=== PATIENT | male | born 1940 | race Caucasian/White ===

== ENCOUNTER → 2018-02-07 13:17 | Outpatient (CLI) | payer MEDICARE, MEDICAID, SELFPAY ==
[2018-02-07 14:09] LABS: Basophils # 0.1 K/mm3 (0-0.2); Eosinophils # 0.2 K/mm3 (0.0-0.4); Eosinophils % 3.3 % (0.1-12.0); Hematocrit 40.9 % (42.0-52.0); Hemoglobin 13.3 g/dL (14.1-18.0); Lymphocytes # 1.1 K/mm3 (0.7-4.5); Lymphocytes % 19.5 K/mm3 (10-50); Mean Corpuscular HGB Conc 32.6 g/dL (31.8-35.4); Mean Corpuscular Hemoglobin 30.7 pg (27.0-31.2); Mean Platelet Volume 7.4 fl (7.4-10.4); Monocytes # 0.3 K/mm3 (0.1-1.0); Monocytes % 6.3 % (1.7-9.3); Neutrophils # 3.7 K/mm3 (1.8-7.8); Neutrophils % 69.8 % (37.0-80.0); Platelet Count 347 K/mm3 (142-424); Red Blood Count 4.35 M/mm3 (4.60-6.20); Red Cell Distribution Width 12.9 % (11.5-17.5); White Blood Count 5.4 K/mm3 (4.8-10.8)
[2018-02-07 14:19] LABS: Anion Gap 12.6 mEq/L (5-15); Blood Urea Nitrogen 24 mg/dL (7-18); Carbon Dioxide 28 mmol/L (21.0-32.0); Chloride 103 mmol/L (98-107); Estimated Glomerular Filt Rate 73 ml/min (>60); Potassium 4.6 mmoL/L (3.5-5.1); Sodium 139 mmol/L (136-145)
[2018-02-07 14:20] LABS: Alanine Aminotransferase 13 U/L (12-78); Albumin/Globulin Ratio 1.1 (1.1-1.8); Alkaline Phosphatase 79 U/L (46-116); Aspartate Amino Transferase 18 U/L (15-37); Bilirubin,Total 0.2 mg/dL (0.2-1.0); Calcium 8.7 mg/dL (8.5-10.1); Chol/HDL Ratio 2.5 (1-3.5); Cholesterol 186 mg/dL (140-200); GFR (African American) 88 ML/MIN (>60); Globulin 3.8 gm/dl (1.3-3.2); Glucose 164 mg/dL (74-106); HDL Cholesterol 73 mg/dL (27-67); LDL Cholesterol 97 mg/dL (0-130); Phenytoin (Dilantin) 7.2 ug/mL (10-20); Thyroid Stimulating Hormone 2.25 uIU/ml (0.358-3.740); Total Protein,Serum 7.8 gm/dL (6.4-8.2); Triglycerides 79 mg/dL (30-200); VLDL Cholesterol 16 mg/dL (0-40)
[2018-02-07 15:02] LABS: Hemoglobin A1C 5.5 % (0.0-7.0)
== END ==
PROVIDERS: Visit Provider Internal Medicine Adolescent Medicine
DX: I25.10 Atherosclerotic heart disease of native coronary artery without angina pectoris (principal); E11.9 Type 2 diabetes mellitus without complications; E03.9 Hypothyroidism, unspecified; G40.909 Epilepsy, unspecified, not intractable, without status epilepticus
CPT/HCPCS: 36415; 80053; 80061; 80185; 83036; 84443; 85025

== ENCOUNTER → 2019-06-29 08:16 | Outpatient (CLI) | payer MEDICARE, SELFPAY ==
--- NOTE | 2019-06-29 08:23 | XR_ITS ---
PROCEDURE: XR HAND LT MIN 3V CLINICAL INDICATION: hand pain Pain palm left hand. Hand is constricted PICC limited ability to straighten hand at MCP joints COMPARISON: No previous left hand studies Only previous contralateral HAND-RT 3 VIEWS from 02/27/2013 FINDINGS: Moderately pronounced flexion at the MCP joints is at left hand. Flexion at left 2nd, 3rd, 4th and 5th MCP joints; but not the 1st MCP joint intact MCP joints themselves appear to be maintained and metacarpals intact.. No discrete erosive changes at these or other joints. Mild degenerative changes and slight narrowing perhaps at DIP joints. The lateral views show mild hypertrophic changes about the DIP joint of the index finger, and possibly 5th finger. Only borderline narrowing at the PIP joints the bones are well mineralized. Minor arthritic changes at the wrist IMPRESSION: Impression No fracture or acute findings Flexion at MCP joints Flexion at left 2nd, 3rd, 4th and 5th MCP joints Minimal degenerative changes at the DIP joints most notable at index finger Dictated by: Nacho Brice MD 06/29/2019 11:18 Signed by: <Electronically signed by Nacho Brice MD in [facility]> 06/29/2019 11:18
== END ==
PROVIDERS: PCP Internal Medicine Adolescent Medicine; Visit Provider Orthopaedic Surgery
DX: G89.29 Other chronic pain (principal); M79.642 Pain in left hand
CPT/HCPCS: 73130

== ENCOUNTER → 2019-08-02 15:20 | Outpatient (CLI) | payer MEDICARE, SELFPAY ==
[2019-08-02 15:59] LABS: Basophils # 0.1 K/mm3 (0-0.2); Basophils % 0.8 % (0.1-2.0); Eosinophils # 0.2 K/mm3 (0.0-0.4); Eosinophils % 2.9 % (0.1-12.0); Hematocrit 40.8 % (42.0-52.0); Hemoglobin 12.8 g/dL (14.1-18.0); Lymphocytes # 1.6 K/mm3 (0.7-4.5); Lymphocytes % 26.3 % (10-50); Mean Corpuscular HGB Conc 31.4 g/dL (31.8-35.4); Mean Corpuscular Hemoglobin 30.9 pg (27.0-31.2); Mean Corpuscular Volume 98.6 fl (80-94); Mean Platelet Volume 6.6 fl (7.4-10.4); Monocytes # 0.5 K/mm3 (0.1-1.0); Monocytes % 8.8 % (1.7-9.3); Neutrophils # 3.8 K/mm3 (1.8-7.8); Neutrophils % 61.3 % (37.0-80.0); Platelet Count 323 K/mm3 (142-424); Red Blood Count 4.14 M/mm3 (4.60-6.20); Red Cell Distribution Width 12.6 % (11.5-17.5); White Blood Count 6.2 K/mm3 (4.8-10.8)
[2019-08-02 16:39] LABS: Hemoglobin A1C 5.7 % (0.0-7.0)
[2019-08-02 16:41] LABS: Alanine Aminotransferase 24 U/L (12-78); Albumin Level 3.7 gm/dL (3.4-5.0); Albumin/Globulin Ratio 1.2 (1.1-1.8); Alkaline Phosphatase 56 U/L (46-116); Anion Gap 11.5 mEq/L (5-15); Aspartate Amino Transferase 19 U/L (15-37); Bilirubin,Total 0.2 mg/dL (0.2-1.0); Blood Urea Nitrogen 28 mg/dL (7-18); Calcium 8.4 mg/dL (8.5-10.1); Carbon Dioxide 30 mmol/L (21.0-32.0); Chloride 106 mmol/L (98-107); Estimated Glomerular Filt Rate 65 ml/min (>60); GFR (African American) 79 ML/MIN (>60); Globulin 3.1 gm/dl (1.3-3.2); Glucose 85 mg/dL (74-106); Phenytoin (Dilantin) 13.5 ug/mL (10-20); Sodium 141 mmol/L (136-145); Total Protein,Serum 6.8 gm/dL (6.4-8.2)
[2019-08-02 16:44] LABS: Potassium 6.5 mmoL/L (3.5-5.1)
[2019-08-07 14:25] LABS: Levetiracetam (Keppra) 65.7 ug/mL (10.0-40.0)
== END ==
PROVIDERS: Visit Provider Internal Medicine Adolescent Medicine
DX: E11.9 Type 2 diabetes mellitus without complications (principal); E03.9 Hypothyroidism, unspecified; G40.909 Epilepsy, unspecified, not intractable, without status epilepticus; I25.10 Atherosclerotic heart disease of native coronary artery without angina pectoris; Z79.84 Long term (current) use of oral hypoglycemic drugs
CPT/HCPCS: 36415; 80053; 80177; 80185; 83036; 84443; 85025

== ENCOUNTER → 2019-08-05 08:42 | Outpatient (CLI) | payer MEDICARE, SELFPAY ==
[2019-08-05 09:09] LABS: Anion Gap 10.6 mEq/L (5-15); Blood Urea Nitrogen 25 mg/dL (7-18); Calcium 8.7 mg/dL (8.5-10.1); Carbon Dioxide 30 mmol/L (21.0-32.0); Chloride 103 mmol/L (98-107); Creatinine,Serum 1.22 mg/dL (0.70-1.30); Estimated Glomerular Filt Rate 58 ml/min (>60); GFR (African American) 70 ML/MIN (>60); Glucose 98 mg/dL (74-106); Potassium 4.6 mmoL/L (3.5-5.1); Sodium 139 mmol/L (136-145)
== END ==
PROVIDERS: Visit Provider Internal Medicine Adolescent Medicine
DX: I10 Essential (primary) hypertension (principal)
CPT/HCPCS: 36415; 80048

== ENCOUNTER → 2019-08-21 08:47 | Outpatient (POV) | payer MEDICARE, MEDICAID, SELFPAY | PROVIDERS: Visit Provider Specialist | DX: M79.642 Pain in left hand (principal); G89.29 Other chronic pain | CPT/HCPCS: 95886; 95908 ==

== ENCOUNTER 2020-06-06 22:33 | Emergency (ER) | payer MEDICARE, MEDICAID, SELFPAY ==
--- NOTE | 2020-06-06 | ECG_ITS ---
APPROVED REPORT Exam: Resting ECG HR:66 bpm ECG Measurements Heart Rate 66 AXES MO 170 P -26 QRSd 92 QRS -22 QT 458 T 62 QTc 480 <Conclusion> Sinus rhythm with premature atrial complexes Incomplete right bundle branch block Prolonged QT Abnormal ECG Electronically signed by : Rui Montanez, 06/08/2020 08:06:59
[2020-06-06 22:33] VITALS: BP 118/66; PULSE 67; RESP 16; TEMP 37.3; O2SAT 94; BMI 27.6
--- NOTE | 2020-06-06 22:46 | XR_ITS ---
PROCEDURE: XR CHEST AP CLINICAL HISTORY: fall Right-sided pain following injury, blunt trauma COMPARISON: CXR CHEST(2 VIEWS-NOT PORTABLE) from 11/23/2014 CT CERVICAL SPINE WO CON from 06/06/2020 FINDINGS: Prior CABG. Normal heart size. No lobar consolidation or collapse. There is minimal blunting of the left CP angle There are old left 4th through 7th rib fractures IMPRESSION: No acute finding. See above Dictated by: Jules Pedro MD 06/07/2020 07:40 Electronically signed by Jules Pedro MD in [facility] 06/07/2020 07:40
--- NOTE | 2020-06-06 22:46 | XR_ITS ---
PROCEDURE: XR HIP RT 2-3V W/PELVIS CLINICAL INDICATION: fall Posttraumatic pain COMPARISON: No exams were available for comparison FINDINGS: No fracture or dislocation. No lytic or blastic change. There is normal mineralization. The joint spaces are well-preserved. No significant degenerative/arthritic changes. No erosive changes evident. Other findings:None. IMPRESSION: No acute findings. Dictated by: Jules Pedro MD 06/07/2020 07:41 Electronically signed by Jules Pedro MD in [facility] 06/07/2020 07:41
--- NOTE | 2020-06-06 22:46 | CT_ITS ---
PROCEDURE: CT HEAD/BRAIN WO CON CLINICAL INDICATION: fall Head injury with headache/pain, contusion, abrasion or hematoma COMPARISON: No exams were available for comparison TECHNIQUE: Axial images obtained. All CT scans at the facility use one or more dose reduction, viz: automated exposure control, ma/kV adjustment per patient size (including targeted exams where dose is matched to indication, i.e. head), or iterative reconstruction technique. FINDINGS: No midline shift, mass effect, intracranial hemorrhage, hydrocephalus, or extra-axial fluid collection is evident. There is generalized atrophy with hypoattenuation of the periventricular white matter consistent with microangiopathic changes. Encephalomalacia changes are present in the right temporal and parietal lobe and the left cerebellar hemisphere and left temporal lobe. The calvarium has an unremarkable appearance. No mastoid effusion. No sinus air-fluid level. The right optic lens is not. IMPRESSION: No acute intracranial finding. Please see above for detail Dictated by: Jules Pedro MD 06/07/2020 07:44 Electronically signed by Jules Pedro MD in [facility] 06/07/2020 07:44
--- NOTE | 2020-06-06 22:46 | CT_ITS ---
PROCEDURE: CT CERVICAL SPINE WO CON CLINICAL INDICATION: fall Neck injury with pain, contusion/abrasion or hematoma, cervical sprain/strain the COMPARISON: XR HIP RT 2-3V W/PELVIS from 06/06/2020 TECHNIQUE: Axial images obtained with sagittal and coronal reformats. All CT scans at the facility use one or more dose reduction, viz: automated exposure control, ma/kV adjustment per patient size (including targeted exams where dose is matched to indication, i.e. head), or iterative reconstruction technique. Axial spiral CT scanning performed of the cervical spine beginning at the base of the skull and continuing to the upper T-spine. 3-D multiplanar reconstruction with 3-D manipulation of volumetric data set in image rendering was completed by the radiologist and/or technologist with the supervision of the radiologist on independent workstation. FINDINGS: There is reversal of the upper cervical lordosis with multilevel cervical spondylosis with degenerative disc disease from C2 to C7 with minimal endplate osteophytes along with facet and uncovertebral hypertrophy. No acute fracture or dislocation. The lung apices are clear. IMPRESSION: 1. No acute fracture. 2. Multilevel cervical spondylosis. 3. There is reversal of the normal lordosis which may be due to patient positioning or muscle spasm. Dictated by: Jules Pedro MD 06/07/2020 07:47 Electronically signed by Jules Pedro MD in [facility] 06/07/2020 07:47
--- NOTE | 2020-06-06 22:53 | HMH.EDFALL ---
ED Disposition Clinical Impression: Frequent falls, Encephalomalacia, Elevated erythrocyte sedimentation rate, Elevated C-reactive protein (CRP), Renal insufficiency Disposition: Left Against Medical Advice Condition on Discharge: Fair Additional Instructions: see pcp vlad Referrals: Provider,Referral, [Primary Care Provider] - - Critical Care Critical Care Time: No Attestation: On 06/06/20, the high probability of a clinically significant, sudden or life threatening deterioration of the following system(s) required my full and direct attention, intervention and personal management. The time I documented below is in addition to time spent performing reported procedures but includes the following listed in this critical care notation. Medical Decision Making - Medical Records Medical records reviewed: Yes: I reviewed the patient's medical records. - Don Inquiry Pt receiving controlled substance: No Vital Signs: 06/06/20 22:33 06/07/20 00:05 Temperature 99.1 F Temperature Source Oral Pulse Rate [Right] 67 50 L Respiratory Rate 16 18 Blood Pressure [Right Arm] 118/66 147/95 H Blood Pressure Mean [Right Arm] 83 112 Blood Pressure Source [Right Arm] Automatic Cuff Blood Pressure Position [Right Arm] Supine 02 Sat by Pulse Oximetry 94 L 95 Oxygen Delivery Method Room Air Room Air - Lab Data Lab results reviewed: Yes: I reviewed the patient's lab results. Lab Results 06/06/20 23:15: WBC 12.4 H, RBC 3.74 L, Hgb 11.7 L, Hct 35.3 L, MCV 94.4 H, MCH 31.3 H, MCHC 33.2, RDW 13.0, Plt Count 244, MPV 7.7, Neut % (Auto) 83.5 H, Lymph % (Auto) 9.2 L, [place] % (Auto) 5.4, Eos % (Auto) 1.6, Baso % (Auto) 0.2, Neut # (Auto) 10.4 H, Lymph # (Auto) 1.2, [place] # (Auto) 0.7, Eos # (Auto) 0.2, Baso # (Auto) 0.0, ESR 105 H 06/06/20 23:15: Sodium 137, Potassium 4.7, Chloride 99, Carbon Dioxide 31 H, Anion Gap 11.7, BUN 37 H, Creatinine 1.20, Estimated Creat Clear 52, Estimated GFR 59, Est GFR ( Amer) 71, Glucose 78, Calcium 8.8, Total Bilirubin 0.5, AST 56, ALT 25, Alkaline Phosphatase 54, Total Creatine Kinase 949 H*, C-Reactive Protein 158.6 H, Total Protein 6.7, Albumin 3.8, Globulin 2.9, Albumin/Globulin Ratio 1.3, Phenytoin 16.4 06/06/20 23:15: Troponin I 0.02 Result diagrams: 06/06/20 23:15 06/06/20 23:15 Orders (Tests/Meds): ED MEDICATIONS Generic Name Dose Route Start Last Admin Trade Name Freq PRN Reason Stop Dose Admin Sodium Chloride 1,000 mls @ 999 mls/hr 06/06/20 23:00 06/07/20 00:05 Sod Chlor 0.9% 1000ml Bag IV 06/07/20 00:00 999 mls/hr .Q1H1M SAUNDRA Administration Discontinued Medications Generic Name Dose Route Start Last Admin Trade Name Freq PRN Reason Stop Dose Admin Ketorolac Tromethamine 30 mg 06/06/20 22:46 06/07/20 00:06 Toradol 30mg/Ml Vial IV 06/06/20 22:47 30 mg ONCE ONE Administration ORDERS Category Date Time Status CT cervical spine wo con Stat Cat Scan 06/06/20 22:[address] head/brain wo con Stat Cat Scan 06/06/20 22:46 Taken Humerus XR right [XR humerus RT] Stat Exams 06/06/20 22:56 Taken XR chest AP Stat Exams 06/06/20 22:46 Taken XR hip RT 2-3V w/pelvis Stat Exams 06/06/20 22:46 Taken Troponin I Q3H Lab 06/07/20 02:30 Ordered Troponin I Q3H Lab 06/07/20 05:30 Ordered UA [Urinalysis and Microscopic] Stat Lab 06/07/20 00:48 Ordered - Radiology Data #1 Image(s): Chest, Humerus, Pelvis, Hip Image Reviewed: Yes I reviewed the patient's radiology image Preliminary Findings: No Fracture Seen - CT Data CT Scan: Head, C-Spine Time Received: 01:[address] Reviewed: Yes: I have viewed the radiologist's interpretation Preliminary Findings: Abnormal (see report ) - ECG Data Tracing #1 Normal Sinus Rhythm: Yes Ischemic changes: non-specific ST-T wave changes Conduction abnormalities present: QT prolongation Fall HPI - General Chief Complaint: Fall Stated Complaint: multiple fall Time Seen by Provider: 06/06/
--- NOTE | 2020-06-06 22:56 | XR_ITS ---
PROCEDURE: XR HUMERUS RT CLINICAL INDICATION: fall Pain following injury COMPARISON: No exams were available for comparison FINDINGS: No fracture or dislocation. No lytic or blastic change. There is normal mineralization. The joint spaces are well-preserved. No significant degenerative/arthritic changes. No erosive changes evident. Other findings:None. IMPRESSION: No acute findings. Dictated by: Jules Pedro MD 06/07/2020 07:38 Electronically signed by Jules Pedro MD in [place] 06/07/2020 07:38
--- NOTE | 2020-06-06 22:57 | PC.NURSE ---
Pt needs to have a BM refuses bed hoyos, agrees to bedside commode, pt assisted to bed side and call light in reach
[2020-06-06 23:25] LABS: Basophils % 0.2 % (0.1-2.0); Eosinophils # 0.2 K/mm3 (0.0-0.4); Eosinophils % 1.6 % (0.1-12.0); Hematocrit 35.3 % (42.0-52.0); Hemoglobin 11.7 g/dL (14.1-18.0); Lymphocytes # 1.2 K/mm3 (0.7-4.5); Lymphocytes % 9.2 % (10-50); Mean Corpuscular HGB Conc 33.2 g/dL (31.8-35.4); Mean Corpuscular Hemoglobin 31.3 pg (27.0-31.2); Mean Corpuscular Volume 94.4 fl (80-94); Mean Platelet Volume 7.7 fl (7.4-10.4); Monocytes # 0.7 K/mm3 (0.1-1.0); Monocytes % 5.4 % (1.7-9.3); Neutrophils # 10.4 K/mm3 (1.8-7.8); Neutrophils % 83.5 % (37.0-80.0); Platelet Count 244 K/mm3 (142-424); Red Blood Count 3.74 M/mm3 (4.60-6.20); White Blood Count 12.4 K/mm3 (4.8-10.8)
[2020-06-06 23:30] LABS: Chloride 99 mmol/L (98-107)
[2020-06-06 23:31] LABS: Potassium 4.7 mmoL/L (3.5-5.1); Sodium 137 mmol/L (136-145)
--- NOTE | 2020-06-06 23:32 | PC.NURSE ---
Pt c/o multiple falls at home, states his legs just give out, only c/o is posterior right hip pain. Pt has larege bruise to right tricept area. Pt daphnie any head injury or LOC. Pt able to raise and hold all 4 ext up without difficulty. PERRL 2mm. A&O x 4
[2020-06-06 23:33] LABS: Alanine Aminotransferase 25 U/L (12-78); Albumin Level 3.8 g/dl (3.5-5.0); Albumin/Globulin Ratio 1.3 (1.1-1.8); Alkaline Phosphatase 54 U/L (38-126); Anion Gap 11.7 mEq/L (5-15); Aspartate Amino Transferase 56 U/L (17-59); Bilirubin,Total 0.5 mg/dl (0.2-1.3); Blood Urea Nitrogen 37 mg/dl (9-20); Calcium 8.8 mg/dl (8.4-10.2); Carbon Dioxide 31 mmol/L (22.0-30.0); Creatine Kinase 949 U/L (55-170); Creatinine Clearance Estimated 52 mL/min (50-200); Estimated Glomerular Filt Rate 59 ml/min (>60); GFR (African American) 71 ML/MIN (>60); Globulin 2.9 g/dL (1.3-3.2); Glucose 78 mg/dl (74-100); Total Protein,Serum 6.7 g/dl (6.3-8.2)
[2020-06-06 23:39] LABS: C-Reactive Protein 158.6 mg/L (0-4)
[2020-06-06 23:48] LABS: Troponin I 0.02 ng/ml (0.00-0.034)
[2020-06-06 23:55] LABS: Phenytoin (Dilantin) 16.4 ug/ml (10-20)
[2020-06-07 00:05] VITALS: BP 147/95; PULSE 50; RESP 18; O2SAT 95
[2020-06-07 00:19] LABS: Erythrocyte Sedimentation Rate 105 mm/hr (0-20)
--- NOTE | 2020-06-07 00:46 | PC.NURSE ---
Pt has become aggressive to staff at this time stating he wants to go home. Pt demanded his IV be taken out as he aysha a fist to staff. Multiple attempts to call caregiver to come pick him up with no answer.
--- NOTE | 2020-06-07 00:57 | PC.NURSE ---
pt is continuing to be aggressive and wont stay in bed pt keep repeating im leaving this damn place MD at bedside to assess pt. pt refused to be assessed by MD pt swore at MD and kept repeating dont put your damn hands on me.
--- NOTE | 2020-06-07 00:59 | PC.NURSE ---
Pt refused vitals or to be touched by any [facility] staff
--- NOTE | 2020-06-07 01:15 | PC.NURSE ---
pt standing naked at the nurses station yelling and cussing and stating he will walk home.
[2020-06-07 01:29] LABS: Microscopic, Urine URINE MICROSCOPIC (MICROSCOPIC)
--- NOTE | 2020-06-07 01:34 | PC.NURSE ---
awaiting ride for patient
[2020-06-07 01:37] LABS: Appearance,Urine CLEAR (Clear); Blood, Urine Negative (Negative); Color,Urine YELLOW (Yellow); Glucose,Urine (UA) Negative (Negative); Ketones,Urine TRACE (Negative); Leukocyte Esterase,Urine TRACE (Negative); Nitrate,Urine Negative (Negative); PH,Urine 8.5 (5.0-8.5); Protein,Urine TRACE (Negative); Urobilinogen,Urine 0.2 EU/dl (0.2)
[2020-06-07 01:39] LABS: Bilirubin,Urine Negative (Negative)
--- NOTE | 2020-06-07 01:41 | PC.NURSE ---
Pt very aggressive swinging at staff, refusing to get back in bed yelling and using foul language walking in the halls naked refusing to go back to room.
--- NOTE | 2020-06-07 01:42 | PC.NURSE ---
Pt leaving AMA refuses to sign paper, we were able to get a hold of Rose to give pt a ride home.
[2020-06-07 01:43] LABS: Bacteria,Urine Trace /lpf; Squamous Epithelial Cell,Urine Occasional #/hpf (0-5); Triple Phosphate Crystal,Urine Trace /lpf
--- NOTE | 2020-06-07 01:51 | PC.NURSE ---
pt sister katie picked up pt.
[2020-06-07 02:08] VITALS: BP 000/00; PULSE 0; RESP 0; TEMP -17.7; TEMP 0; O2SAT 0
[2020-06-07 15:24] LABS: POC Glucose,Bedside 89 (70-110)
== END 2020-06-07 02:11 | disposition left against medical advice (07) ==
PROVIDERS: Emergency Provider Emergency Medicine
DX: G93.89 Other specified disorders of brain (principal); N28.9 Disorder of kidney and ureter, unspecified; M25.551 Pain in right hip; R29.6 Repeated falls; E11.9 Type 2 diabetes mellitus without complications; R79.82 Elevated C-reactive protein (CRP); R70.0 Elevated erythrocyte sedimentation rate; Z79.899 Other long term (current) drug therapy
CPT/HCPCS: 70450; 71045; 72125; 73060; 73502; 80053; 80185; 81001; 82550; 82962; 84484; 85025; 85651; 86140; 93005; 96365; 96375; 99284

== ENCOUNTER → 2020-10-29 11:29 | Outpatient (CLI) | payer MEDICARE, MEDICAID, SELFPAY ==
--- NOTE | 2020-10-29 | CA_ITS ---
APPROVED REPORT Right Lower Extremity Venous Study for DVT. Panel Machine Tender: MARISOL Indications Lower Extremity Pain: Left Vein Imaging CFV (R): compressive, spontaneous, phasic, augmentation SFJ (R): compressive, spontaneous, phasic, augmentation FEM (R): compressive, spontaneous, phasic, augmentation POP (R): compressive, spontaneous, phasic, augmentation DFV (R): compressive, spontaneous, phasic, augmentation PTV (R): compressive, spontaneous, phasic, augmentation GSV (R): compressive, spontaneous, phasic, augmentation SSV (R): compressive, spontaneous, phasic, augmentation Peroneals (R):compressive, spontaneous, phasic, augmentation GAS (R): compressive, spontaneous, phasic, augmentation Findings RLE negative for DVT/SVT. Vessels fully compressible. Conclusion RLE negative for DVT/SVT. Vessels fully compressible. Electronically signed by : Jules Pedro MD 10/29/2020 16:06:50
== END ==
PROVIDERS: PCP Internal Medicine Adolescent Medicine; Visit Provider Podiatrist
DX: M79.604 Pain in right leg (principal)
CPT/HCPCS: 93971

== ENCOUNTER 2021-05-16 09:57 | Emergency (ER) | payer MEDICARE, MEDICAID, SELFPAY ==
[2021-05-16 10:04] VITALS: BP 180/93; PULSE 68; RESP 18; TEMP 36.8; O2SAT 100; BMI 23.8
[2021-05-16 10:47] LABS: Apearance,Urine Cloudy (Clear); Blood, Urine 3+ (Negative); Color,Urine Amber (Yellow); Glucose,Urine (UA) Negative (Negative); Ketones,Urine TRACE (Negative); Protein,Urine 1+ (Negative); Specific Gravity, Urine 1.025 (1.005-1.030)
[2021-05-16 10:48] LABS: Bilirubin,Urine 1+ (Negative); UTC Leukocyte Esterase,Urine 2+ (Negative); UTC Nitrate,Urine Negative (Negative); Urobilinogen,Urine 0.2 EU/dl (0.2)
--- NOTE | 2021-05-16 10:54 | HMH.EDUTC ---
[facility] [place]position Clinical Impression: UTI (urinary tract infection) Qualifiers: Urinary tract infection type: site unspecified Hematuria presence: with hematuria Qualified Code(s): N39.0 - Urinary tract infection, site not specified Disposition: Home, Self-Care Condition on Discharge: Good Instructions: DI for Urinary Tract Infection (UTI) Additional Instructions: Drink plenty of fluids. Take tylenolfor pain or fever. Take the medications as directed. Follow up with your regular doctor. GO TO THE ER FOR ANY WORSENING SYMPTOMS Prescriptions: Cefdinir [Omnicef 300mg Capsule] 300 mg PO BID #20 cap Transmission Status: Received by [facility] Referrals: Provider,Referral, [Primary Care Provider] - Time of Disposition: 11:01 Medical Decision Making - Medical Records Medical records reviewed: No: I reviewed the patient's medical records. - Don Inquiry Pt receiving controlled substance: No Vital Signs: 05/16/21 10:04 05/16/21 10:59 Temperature 98.2 F 98.3 F Temperature Source Oral Pulse Rate 77 Pulse Rate [Left Radial] 68 Respiratory Rate 18 18 Blood Pressure 162/81 H Blood Pressure [Right Arm] 180/93 H Blood Pressure Mean [Right Arm] 122 Blood Pressure Source [Right Arm] Automatic Cuff Blood Pressure Position [Right Arm] Sitting 02 Sat by Pulse Oximetry 100 Oxygen Delivery Method Room Air - Lab Data Lab results reviewed: Yes: I reviewed the patient's lab results. Lab Results 05/16/21 10:41: Urine Color Rachelle, Urine Appearance Cloudy, Urine pH 7.0, Ur Specific [place] 1.025, Urine Protein 1+, Urine Glucose (UA) Negative, Urine Ketones Trace, Urine Blood 3+, Urine Nitrate Negative, Urine Bilirubin 1+ A, Urine Urobilinogen 0.2, Ur Leukocyte Esterase 2+ A Orders (Tests/Meds): ORDERS Category Date Time Status Urine Culture Stat Micro 05/16/21 11:01 Received [facility] [place] HPI - General Stated complaint: painful when urinates Time Seen by Provider: 05/16/21 10:54 Mode of Arrival: Ambulatory Source of Information: Patient Limitations: No Limitations Description of Symptoms (Recalled from Triage Doc. by RN): Pt reports pain in penis after urinating x3 days. Pt denies fevers. Pt reports he does feel like he is able to empty his bladder fully. - History of Present Illness Provider Complaint: He states that he has been having burning with urination for the past 2 days. He also has pain and burning of his penis after he urinates. - Related Data Home Medications Medication Instructions Recorded Confirmed Buspirone HCl [Buspar 10mg 10 mg PO DAILY 06/06/19 05/14/21 tablet] Clopidogrel Bisulfate [Plavix 75mg 75 mg PO DAILY 06/06/19 05/14/21 Tab] Donepezil HCl [Aricept 5mg 5 mg PO DAILY 06/06/19 05/14/21 Tablet] Meloxicam 15 mg PO DAILY 06/06/19 05/14/21 Metoprolol Tartrate [Lopressor 25 mg PO DAILY 06/06/19 05/14/21 25mg tablet] clonazePAM [Clonazepam] 1 mg PO DAILY 06/06/19 05/14/21 levETIRAcetam [Levetiracetam] 500 mg PO DAILY 06/06/19 05/14/21 aspirin 81 mg tablet,delayed 81 mg PO DAILY 06/30/19 05/14/21 release atorvastatin 20 mg tablet 20 mg PO DAILY 06/30/19 05/14/21 cholecalciferol (vitamin D3) 25 1,000 unit PO DAILY 06/30/19 05/14/21 mcg (1,000 unit) capsule linaclotide 72 mcg capsule 72 mcg PO DAILY 06/30/19 05/14/21 magnesium oxide 400 mg PO DAILY 06/30/19 05/14/21 mirtazapine 30 mg tablet 30 mg PO DAILY 06/30/19 05/14/21 phenytoin 100 mg/4 mL oral 100 mg PO TID 06/30/19 05/14/21 suspension ranolazine 1,000 mg 1,000 mg PO BID 06/30/19 05/14/21 tablet,extended release,12 hr levothyroxine 75 mcg tablet 75 mcg PO tab 05/14/21 05/14/21 metformin 500 mg tablet 500 mg PO tab 05/14/21 05/14/21 pregabalin 50 mg capsule 50 mg PO cap 05/14/21 05/14/21 Previous Rx's Medication Instructions Recorded methylprednisolone 4 mg tablets in See Rx Instructions PO PER PKG DIR 06/30/21 a dose pack #21 tab Cefdinir [Om
[2021-05-16 10:59] VITALS: BP 162/81; PULSE 77; RESP 18; TEMP 36.8
== END 2021-05-16 11:10 | disposition home or self-care (01) ==
PROVIDERS: Emergency Provider Nurse Practitioner Family
DX: N30.01 Acute cystitis with hematuria (principal); I25.10 Atherosclerotic heart disease of native coronary artery without angina pectoris; E11.9 Type 2 diabetes mellitus without complications; E78.5 Hyperlipidemia, unspecified; F41.8 Other specified anxiety disorders; Z79.899 Other long term (current) drug therapy
CPT/HCPCS: 81003; 87086

== ENCOUNTER → 2021-12-03 11:03 | Outpatient (CLI) | payer MEDICARE, MEDICAID, SELFPAY ==
[2021-12-03 12:21] LABS: Basophils % 0.6 % (0.1-2.0); Eosinophils # 0.1 K/mm3 (0.0-0.4); Hematocrit 36.8 % (42.0-52.0); Hemoglobin 11.5 g/dL (14.1-18.0); Lymphocytes # 1.2 K/mm3 (0.7-4.5); Lymphocytes % 20.7 % (10-50); Mean Corpuscular HGB Conc 31.1 g/dL (31.8-35.4); Mean Corpuscular Hemoglobin 28.1 pg (27.0-31.2); Mean Corpuscular Volume 90.1 fl (80-94); Monocytes # 0.5 K/mm3 (0.1-1.0); Monocytes % 8.3 % (1.7-9.3); Neutrophils # 3.9 K/mm3 (1.8-7.8); Neutrophils % 69.3 % (37.0-80.0); Platelet Count 315 K/mm3 (142-424); Red Blood Count 4.08 M/mm3 (4.60-6.20); Red Cell Distribution Width 14.4 % (11.5-17.5); White Blood Count 5.6 K/mm3 (4.8-10.8)
[2021-12-03 13:48] LABS: Chloride 103 mmol/L (98-107)
[2021-12-03 13:49] LABS: Potassium 5.3 mmoL/L (3.5-5.1); Sodium 136 mmol/L (136-145)
[2021-12-03 13:51] LABS: Alanine Aminotransferase 17 U/L (12-78); Anion Gap 8.3 mEq/L (5-15); Aspartate Amino Transferase 25 U/L (17-59); Blood Urea Nitrogen 24 mg/dl (9-20); Carbon Dioxide 30 mmol/L (22.0-30.0); Estimated Glomerular Filt Rate 64 ml/min (>60); GFR (African American) 78 ML/MIN (>60)
[2021-12-03 13:52] LABS: Albumin Level 4.1 g/dl (3.5-5.0); Albumin/Globulin Ratio 1.5 (1.1-1.8); Alkaline Phosphatase 43 U/L (38-126); Bilirubin,Total 0.1 mg/dl (0.2-1.3); Calcium 8.3 mg/dl (8.4-10.2); Cholesterol 150 mg/dl (140-200); Globulin 2.7 g/dL (1.3-3.2); Glucose 141 mg/dl (74-100); HDL Cholesterol 78 mg/dl (40-60); Total Protein,Serum 6.8 g/dl (6.3-8.2); Triglycerides 119 mg/dl (30-150); VLDL Cholesterol 24 mg/dL (0-40)
[2021-12-03 13:53] LABS: Chol/HDL Ratio 1.9 (1-3.5)
[2021-12-03 14:03] LABS: Direct LDL Cholesterol 60.35 mg/dL (100-129)
[2021-12-03 14:22] LABS: Thyroid Stimulating Hormone 2.73 uIU/mL (0.465-4.68)
[2021-12-03 14:56] LABS: Hemoglobin A1C 5.4 % (4.0-6.0)
== END ==
PROVIDERS: PCP Internal Medicine Adolescent Medicine; Visit Provider Internal Medicine Adolescent Medicine
DX: I25.10 Atherosclerotic heart disease of native coronary artery without angina pectoris (principal); E03.9 Hypothyroidism, unspecified; E11.9 Type 2 diabetes mellitus without complications; Z79.84 Long term (current) use of oral hypoglycemic drugs
CPT/HCPCS: 36415; 80053; 80061; 83036; 84443; 85025

== ENCOUNTER → 2022-08-18 08:27 | Outpatient (POV) | payer MEDICARE, MEDICAID, SELFPAY | PROVIDERS: Visit Provider Dermatology | DX: Z00.00 Encounter for general adult medical examination without abnormal findings (principal) ==

== ENCOUNTER 2023-02-05 10:32 | Observation (INO) | payer MEDICARE, MEDICAID, SELFPAY ==
[2023-02-05] VITALS (11 sets, daily range): BP systolic 94–172; BP diastolic 58–100; PULSE 74–89; RESP 18–20; TEMP 36.8–36.9; O2SAT 90–99; BMI 29.8; BMI 23.4
--- NOTE | 2023-02-05 10:35 | ECG_ITS ---
APPROVED REPORT Exam: Resting ECG HR:73 bpm ECG Measurements Heart Rate 73 AXES OH 143 P 17 QRSd 94 QRS -39 QT 443 T 67 QTc 469 Conclusion SINUS RHYTHM LEFT AXIS DEVIATION [QRS AXIS < -30] NONSPECIFIC T-WAVE ABNORMALITY PROLONGED QT INTERVAL ABNORMAL ECG UNCONFIRMED REPORT Electronically signed by : Rui Montanez MD 02/06/2023 20:30:10
--- NOTE | 2023-02-05 10:39 | PC.NURSE ---
ADOLFO TINOCO at
--- NOTE | 2023-02-05 10:41 | HMH.EDGENADL ---
Discharge Plan Disposition Chief Complaint: Altered Mental Status Prescriptions Prescriptions: No Action Linzess 72 mcg capsule 72 mcg PO DAILY aspirin [Aspir-81] 81 mg tablet,delayed release (DR/EC) 81 mg PO DAILY cholecalciferol (vitamin D3) 1,000 unit capsule 1,000 unit PO DAILY phenytoin 100 mg/4 mL suspension 100 mg PO TID atorvastatin 20 mg tablet 20 mg PO DAILY magnesium oxide 400 mg magnesium capsule 400 mg PO DAILY Ranexa 1,000 mg tablet extended release 12 hr 1,000 mg PO BID mirtazapine 30 mg tablet 30 mg PO DAILY metformin 500 mg tablet 500 mg PO pregabalin 50 mg capsule 50 mg PO levothyroxine 75 mcg tablet 75 mcg PO methylprednisolone 4 mg tablets,dose pack See Rx Instructions PO PER PKG DIR Qty: 21 0RF Rx Instructions: PO PER PKG DIR meclizine 25 mg tablet 25 mg PO donepezil 5 MG tablet 5 mg PO DAILY levetiracetam 500 MG tablet 500 mg PO DAILY meloxicam 15 MG tablet 15 mg PO DAILY clonazepam 1 MG tablet 1 mg PO DAILY clopidogrel 75 MG tablet 75 mg PO DAILY buspirone 10 MG tablet 10 mg PO DAILY metoprolol tartrate 25 MG tablet 25 mg PO DAILY Referrals Follow up/Referrals: Provider,Referral, MD [Primary Care Provider] - See instructions Instructions Patient Instructions: DI for Altered Mental Status Discharge ED Provider: Rafia Metzger General Adult HPI General Chief complaint: Altered Mental Status Stated complaint: AMS Time Seen by Provider: 02/05/23 10:41 History of Present Illness HPI narrative: Patient is an 82-year-old male presenting with altered mental status. History was obtained from the patient, EMS, and his caregiver, his caregiver who is a primary historian with the most concise and accurate information. She states that he has been altered for the last 3 days that he is normally coherent at baseline but has been speaking out of his mind and that he has been trying to find his sister who is as well as doing things like drinking tobacco juice. She states he is also been screaming and yelling and hallucinating at night. He seems to be better during the day. Preceding this he has had no fevers chills or other symptoms according to her and she sees him on a daily basis. No changes in medications that she is aware of. The patient himself states that he has no current pain and he believes he is here because he had worsening falls lately. Caregiver does confirm that he fell recently while getting out of his car scraped up his right hand but had no other significant injuries and did not hit his head that she is aware of. She states only time she seen him like this in the past was around the time that his years ago. Remainder of history from the patient is significantly limited as he is a poor historian but also is disoriented to time. Related Data Home Medications Medication Instructions Recorded Confirmed buspirone 10 mg tablet 10 mg PO DAILY Depression 06/06/19 12/24/22 clonazepam 1 mg tablet 1 mg PO DAILY Anxiety 06/06/19 12/24/22 clopidogrel 75 mg tablet 75 mg PO DAILY Blood thinner 06/06/19 12/24/22 donepezil 5 mg tablet 5 mg PO DAILY Supplement 06/06/19 12/24/22 levetiracetam 500 mg tablet 500 mg PO DAILY Supplement 06/06/19 12/24/22 meloxicam 15 mg tablet 15 mg PO DAILY Pain 06/06/19 12/24/22 metoprolol tartrate 25 mg tablet 25 mg PO DAILY Hypertension 06/06/19 12/24/22 aspirin 81 mg tablet,delayed 81 mg PO DAILY 06/30/19 12/24/22 release (Aspir-) atorvastatin 20 mg tablet 20 mg PO DAILY 06/30/19 12/24/22 cholecalciferol (vitamin D3) 25 1,000 unit PO DAILY 06/30/19 12/24/22 mcg (1,000 unit) capsule linaclotide 72 mcg capsule 72 mcg PO DAILY 06/30/19 12/24/22 (Linzess) magnesium oxide 400 mg PO DAILY 06/30/19 12/24/22 mirtazapine 30 mg tablet 30 mg PO DAILY 06/30/19 12/24/22 phenytoin 100 mg/4 mL oral 100 mg PO
--- NOTE | 2023-02-05 10:42 | XR_ITS ---
FINAL REPORT CLINICAL HISTORY: AMS COMPARISON: 06/06/2020 FINDINGS: SINGLE-VIEW CHEST The heart size is normal. The patient is status post median sternotomy. There are mild chronic changes in both lungs. The previously identified interstitial opacity in both lungs has improved, likely related to superimposed pulmonary edema. There is no pneumothorax. IMPRESSION: Improved interstitial opacity as compared to prior. Reviewed, Interpreted and Dictated by Kamron Sommers MD Transcribed by Kathy Dominguez Authenticated and [facility]
--- NOTE | 2023-02-05 10:43 | CT_ITS ---
FINAL REPORT TECHNIQUE: Axial images were performed through the brain.This study was performed with techniques to keep radiation doses as low as reasonably achievable, (ALARA). Individualized dose reduction techniques using automated exposure control or adjustment of mA and/or kV according to the patient''s size were employed. CLINICAL HISTORY: AMS COMPARISON: 06/06/2020 FINDINGS: Motion artifact limits exam sensitivity. There is encephalomalacia in the anterior middle right temporal lobe extending to the right posterior parietal lobe. There is also encephalomalacia in the anterior left temporal lobe. There is mild to moderate global atrophy. The ventricles are normal in size for the degree of atrophy. There is no extra-axial fluid or midline shift. There is no evidence of acute hemorrhage or mass. Visualized paranasal sinuses are clear. IMPRESSION: Atrophy and chronic findings. No acute intracranial process. Reviewed, Interpreted and Dictated by Kamron Sommers MD Transcribed by Bhavana Liao Authenticated and [facility]
[2023-02-05 10:54] LABS: POC Glucose,Bedside 146 (70-110)
[2023-02-05 10:57] LABS: Basophils # 1.2 K/mm3 (0-0.2); Basophils % 6.9 % (0.1-2.0); Eosinophils # 0.3 K/mm3 (0.0-0.4); Eosinophils % 1.9 % (0.1-12.0); Hematocrit 31.8 % (42.0-52.0); Hemoglobin 10.1 g/dL (14.1-18.0); Lymphocytes # 8.1 K/mm3 (0.7-4.5); Lymphocytes % 47.1 % (10-50); Mean Corpuscular HGB Conc 31.9 g/dL (31.8-35.4); Mean Corpuscular Hemoglobin 27.6 pg (27.0-31.2); Mean Corpuscular Volume 86.7 fl (80-94); Mean Platelet Volume 7.5 fl (7.4-10.4); Monocytes # 1.2 K/mm3 (0.1-1.0); Monocytes % 7.2 % (1.7-9.3); Neutrophils # 7.5 K/mm3 (1.8-7.8); Neutrophils % 43.9 % (37.0-80.0); Platelet Count 394 K/mm3 (142-424); Red Blood Count 3.67 M/mm3 (4.60-6.20); Red Cell Distribution Width 16.2 % (11.5-17.5); White Blood Count 17.1 K/mm3 (4.8-10.8)
[2023-02-05 11:00] LABS: Alanine Aminotransferase 20 U/L (12-78); Albumin Level 3.4 g/dl (3.5-5.0); Albumin/Globulin Ratio 0.7 (1.1-1.8); Alkaline Phosphatase 66 U/L (38-126); Anion Gap 11.1 mEq/L (5-15); Aspartate Amino Transferase 33 U/L (17-59); Bilirubin,Total 0.3 mg/dl (0.2-1.3); Blood Urea Nitrogen 30 mg/dl (9-20); Calcium 7.9 mg/dl (8.4-10.2); Carbon Dioxide 30 mmol/L (22.0-30.0); Chloride 99 mmol/L (98-107); Creatinine Clearance Estimated 40 mL/min (50-200); Estimated Glomerular Filt Rate 39 ml/min (>60); GFR (African American) 47 ML/MIN (>60); Globulin 4.7 g/dL (1.3-3.2); Glucose 148 mg/dl (74-100); Potassium 4.1 mmoL/L (3.5-5.1); Sodium 136 mmol/L (136-145); Total Protein,Serum 8.1 g/dl (6.3-8.2)
[2023-02-05 11:03] LABS: Activated Partial Thrombo Time 24.7 seconds (22.8-30.6); INR 1.14 (0.9-1.1); Prothrombin Time 12.2 seconds (10.1-12.5)
[2023-02-05 11:04] LABS: MANUAL DIFFERENTIAL MANUAL DIFFERENTIAL (MANUAL DIFF)
[2023-02-05 11:04] LABS: Microscopic, Urine URINE MICROSCOPIC (MICROSCOPIC)
[2023-02-05 11:08] LABS: Appearance,Urine CLOUDY (Clear); Blood, Urine 2+ (Negative); Color,Urine YELLOW (Yellow); Glucose,Urine (UA) Negative (Negative); Ketones,Urine 1+ (Negative); Leukocyte Esterase,Urine TRACE (Negative); Nitrate,Urine Negative (Negative); Protein,Urine 2+ (Negative); Specific Gravity, Urine >= 1.030 (1.005-1.030); Urobilinogen,Urine 0.2 EU/dl (0.2)
[2023-02-05 11:10] LABS: Bilirubin,Urine 1+ (Negative)
[2023-02-05 11:10] LABS: VBG Base Excess 1.7 mmol/L (-2.4-2.3); VBG HCO3 26.8 mmol/L (23-30); VBG Oxygen Saturation 60.2 % (50-70); VBG PCO2 46.2 mmol/L (35-51); VBG PH 7.38 mmol/L (7.31-7.41); VBG PO2 33.9 mmol/L (28-40); VBG Total CO2 28.3 mmol/L (23-27)
[2023-02-05 11:17] LABS: Lymphocytes % 65 % (10-50); Monocytes % 2 % (2-9); Neutrophils % 33 % (42-76); Total Cells Counted 100
[2023-02-05 11:18] LABS: Hypochromasia 1+; Microcytosis 1+; Platelet Estimate Normal
[2023-02-05 11:22] LABS: Bacteria,Urine 2+ /lpf; Squamous Epithelial Cell,Urine Occasional #/hpf (0-5)
--- NOTE | 2023-02-05 11:22 | PC.NURSE ---
pt given meal tray
--- NOTE | 2023-02-05 11:25 | PC.NURSE ---
pt to radiology
[2023-02-05 11:31] LABS: Thyroid Stimulating Hormone 2.37 uIU/mL (0.465-4.68)
--- NOTE | 2023-02-05 11:41 | PC.NURSE ---
pt sitting up in bed eating diabetic lunch tray at this time. call light within reach
[2023-02-05 12:47] LABS: Ammonia 36 umol/L (9-30)
--- NOTE | 2023-02-05 12:47 | PC.NURSE ---
pt ambulated to restroom and a small mb no problems ambulating to and from restroom
--- NOTE | 2023-02-05 13:28 | PC.NURSE ---
pt has tried getting out of bed three time help adjust pt in bed moved curtain were we can keep a watch on pt. his sister is @ [facility]
--- NOTE | 2023-02-05 14:51 | PC.NURSE ---
Friend updated on plan of care; pending admission.
--- NOTE | 2023-02-05 14:56 | PC.NURSE ---
Case Management notified of admission. Dr. Pete Garrett Dx Encephalopathy & UTI
[2023-02-05 15:17] LABS: Opiate Screen,Urine Negative ng/ml (<300)
--- NOTE | 2023-02-05 15:17 | PC.NURSE ---
Dr. lucas, hospitialist at
[2023-02-05 15:18] LABS: Phencyclidine Screen,Urine Negative ng/ml (<25)
--- NOTE | 2023-02-05 15:18 | PC.NURSE ---
Dr Doroteo Garrett @ [facility]
[2023-02-05 15:22] LABS: Amphetamine/Metha Screen,Urine Negative ng/ml (<1000); Barbiturates Screen,Urine Negative ng/ml (<200)
[2023-02-05 15:23] LABS: Benzodiazepines Screen,Urine Negative ng/ml (<200)
[2023-02-05 15:25] LABS: Cannabinoid Screen,Urine Negative ng/ml (<50)
--- NOTE | 2023-02-05 15:25 | EXP.HP ---
History of Present Illness *Admission Date: 02/05/23 *Reason for visit:: Confusion *History of present illness: Patient is an 82-year-old male presenting with altered mental status.? History was obtained from the patient, EMS, and his caregiver, his caregiver who is a primary historian with the most concise and accurate information.? She states that he has been altered for the last 3 days that he is normally coherent at baseline but has been speaking out of his mind and that he has been trying to find his sister who is as well as doing things like drinking tobacco juice.? She states he is also been screaming and yelling and hallucinating at night.? He seems to be better during the day.? Preceding this he has had no fevers chills or other symptoms according to her and she sees him on a daily basis.? No changes in medications that she is aware of.? The patient himself states that he has no current pain and he believes he is here because he had worsening falls lately.? Caregiver does confirm that he fell recently while getting out of his car scraped up his right hand but had no other significant injuries and did not hit his head that she is aware of.? She states only time she seen him like this in the past was around the time that his years ago.? Remainder of history from the patient is significantly limited as he is a poor historian but also is disoriented to time. [facility] Disclaimer: The information contained in this section may have been updated after the patient was seen, as this information can be updated by other users. Social History (Reviewed 12/24/22 @ 10:50 by Millicent Quinones [facility]) Smoking Status: Unknown if ever smoked alcohol intake: former substance use type: denies use current occupational status: retired Travel in the last 8 weeks: None Review of Systems Review of Systems Review of systems:: unable to obtain Meds Home Medications and Allergies Home Medications Medication Instructions Recorded Confirmed Type buspirone 10 mg tablet 10 mg PO DAILY Depression 06/06/19 12/24/22 History clonazepam 1 mg tablet 1 mg PO DAILY Anxiety 06/06/19 12/24/22 History clopidogrel 75 mg tablet 75 mg PO DAILY Blood thinner 06/06/19 12/24/22 History donepezil 5 mg tablet 5 mg PO DAILY Supplement 06/06/19 12/24/22 History levetiracetam 500 mg tablet 500 mg PO DAILY Supplement 06/06/19 12/24/22 History meloxicam 15 mg tablet 15 mg PO DAILY Pain 06/06/19 12/24/22 History metoprolol tartrate 25 mg tablet 25 mg PO DAILY Hypertension 06/06/19 12/24/22 History aspirin 81 mg tablet,delayed 81 mg PO DAILY 06/30/19 12/24/22 History release (Aspir-) atorvastatin 20 mg tablet 20 mg PO DAILY 06/30/19 12/24/22 History cholecalciferol (vitamin D3) 25 1,000 unit PO DAILY 06/30/19 12/24/22 History mcg (1,000 unit) capsule linaclotide 72 mcg capsule 72 mcg PO DAILY 06/30/19 12/24/22 History (Linzess) magnesium oxide 400 mg PO DAILY 06/30/19 12/24/22 History mirtazapine 30 mg tablet 30 mg PO DAILY 06/30/19 12/24/22 History phenytoin 100 mg/4 mL oral 100 mg PO TID 06/30/19 12/24/22 History suspension ranolazine 1,000 mg 1,000 mg PO BID 06/30/19 12/24/22 History tablet,extended release,12 hr (Ranexa) levothyroxine 75 mcg tablet 75 mcg PO 05/14/21 12/24/22 History metformin 500 mg tablet 500 mg PO 05/14/21 12/24/22 History methylprednisolone 4 mg tablets in See Rx Instructions PO PER PKG DIR 05/14/21 12/24/22 Rx a dose pack #21 tabs pregabalin 50 mg capsule 50 mg PO 05/14/21 12/24/22 History meclizine 25 mg tablet 25 mg PO 03/09/22 12/24/22 History New Prescriptions to Start Prescriptions: Allergies Allergy/AdvReac Type Severity Reaction Status Date / Time No Known Allergies Allergy Verified 12/24/22 10:50 Exam Data for Last 24 hours Vital signs and Labs for Last 24 Hours: Temp Pulse Resp BP Pulse Ox 98.2 F 74 20 132/100 H 95 02/05/23 10:32 02/05/23 15:00 02/05/23 14:01 01/14
[2023-02-05 15:26] LABS: Cocaine Screen,Urine Negative ng/ml (<300)
[2023-02-05 15:27] LABS: Methadone Screen,Urine Negative ng/ml (<300)
--- NOTE | 2023-02-05 15:33 | US_ITS ---
PROCEDURE INFORMATION: Exam: US Abdomen, Limited; Right Upper Quadrant Exam date and time: 02/05/2023 4:23 PM Age: 82 years old Clinical indication: Abdominal pain; Prior surgery; Surgery date: 6+ months; Surgery type: Gb removed; Additional info: Liver. +- cirrhosis? ? TECHNIQUE: Imaging protocol: Real time ultrasound of the abdomen with image documentation. Limited exam focused on the right upper quadrant. COMPARISON: No relevant prior studies available. FINDINGS: Liver: Normal echotexture with a septated cystic nodule measuring 1.4 x 1.2 cm. No significant intrahepatic biliary ductal dilation. Gallbladder: Unremarkable cholecystectomy site. Biliary ducts: Common duct: 4 mm. Pancreas: Visualized pancreas normal. Right kidney: Measures 8.6 cm and demonstrates normal echotexture, normal renal cortical thickness without nephrolithiasis or hydronephrosis. Other findings: No evidence of ascites. IMPRESSION: A small septated cystic hepatic nodule, otherwise unremarkable study.
--- NOTE | 2023-02-05 15:39 | PC.NURSE ---
nurse with other pt, will call back for report
[2023-02-05 15:50] LABS: Coronavirus 19, PCR Not Detected (NotDetected); Influenza A, PCR Not Detected (NotDetected); Influenza B, PCR Not Detected (NotDetected)
--- NOTE | 2023-02-05 15:57 | PC.NURSE ---
report called to Colleen CLARKE
--- NOTE | 2023-02-05 16:03 | PC.NURSE ---
kyle area cleaned and pt placed in new gown
--- NOTE | 2023-02-05 16:20 | PC.NURSE ---
lab states that covid swab is going on now, they just finished with another swab
--- NOTE | 2023-02-05 16:22 | PC.NURSE ---
radiology at bs for US
[2023-02-05 16:24] LABS: Thyroid Stimulating Hormone 2.29 uIU/mL (0.465-4.68)
--- NOTE | 2023-02-05 16:58 | PC.NURSE ---
pt arrived to floor by wheelchair at [phone]
--- NOTE | 2023-02-05 18:19 | PC.WOUNDNOTE ---
BRUISING TO R ELBOW BRUISING TO R HAND SKIN TEAR TO L ARM L ARM SCRAPES TO L FINGERS BRUISE ON R THIGH BRUISE ON L KNEE
--- NOTE | 2023-02-05 18:21 | PC.NURSE ---
PT IS ALERT TO NAME AND BIRTHDAY. UNABLE TO ANSWER OTHER QUESTIONS AND IS CONFUSED. PT HAS SCATTERED BRUISING AND SKIN TEARS. PT IS ABLE TO URINATE IN URINAL WITH ASSISTANCE. URINE DARK TEA COLORED. SOME BLEEDING NOTED TO TIP OF PENIS. PT HAS HAD NO NEEDS OR C/O NOTED SINCE ARRIVAL TO FLOOR. TOLERATING RA WELL. BED SAFETY ON. BRIEF IN PLACE. PT RESTING AT THIS TIME, VSS. PT DOES HAVE HOME MEDS, WILL LOCK IN MED DRAWER.
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
--- NOTE | 2023-02-05 21:12 | PC.NURSE ---
MORE COOPERATIVE. ORIENTED TO PERSON. RESTING QUIETLY AT THIS TIME. HOB ELEVATED 30 DEGREES. SIDE RAILS UP X 3. UPPER RAILS PADDED FOR H/O SEIZURES. CALL WOOD IN REACH.
--- NOTE | 2023-02-05 22:22 | PC.NURSE ---
PATIENT AWAKE. TRYING TO GET OOB. UNSTEADY. CONFUSED. HITTING. KICKING. CONFUSED. TONO Burr DNP NOTIFIED.
--- NOTE | 2023-02-05 22:40 | PC.NURSE ---
patient has received 15 mg olanzipin. warehouse assembly worker notified that patient needs a sitter as he is confused and unsteady and will fall. sitter arrived at 2240.
--- NOTE | 2023-02-05 22:53 | PC.NURSE ---
awake. resting in bed. quiet. sitter at bedside.
--- NOTE | 2023-02-05 23:54 | PC.NURSE ---
patient pulled iv out dispite having a sitter.
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
--- NOTE | 2023-02-06 02:55 | PC.NURSE ---
AT 2030 BLADDER SCAN READINGS (POST VOID) 22ML AND 23 ML.
[2023-02-06 04:00] VITALS: BP 156/91; PULSE 62; RESP 18; TEMP 36.9; O2SAT 88; BMI 23.1
--- NOTE | 2023-02-06 04:10 | PC.NURSE ---
TOTAL IVFs 841. IV SITE SALINE LOCKED PATIENT CONSTANTLY FIGHTING THE IVFs.
--- NOTE | 2023-02-06 04:16 | PC.NURSE ---
NAPS AT SHORT INTERVALS. IV SITE LOCKED AT THIS TIME.
[2023-02-06 07:28] LABS: Basophils # 0.6 K/mm3 (0-0.2); Basophils % 4.3 % (0.1-2.0); Eosinophils # 0.5 K/mm3 (0.0-0.4); Eosinophils % 3.6 % (0.1-12.0); Hematocrit 30.8 % (42.0-52.0); Hemoglobin 9.7 g/dL (14.1-18.0); Lymphocytes # 6.5 K/mm3 (0.7-4.5); Mean Corpuscular HGB Conc 31.4 g/dL (31.8-35.4); Mean Corpuscular Volume 85.9 fl (80-94); Mean Platelet Volume 7.6 fl (7.4-10.4); Neutrophils # 5.8 K/mm3 (1.8-7.8); Neutrophils % 42.3 % (37.0-80.0); Platelet Count 379 K/mm3 (142-424); Red Blood Count 3.58 M/mm3 (4.60-6.20); Red Cell Distribution Width 16.2 % (11.5-17.5); White Blood Count 13.7 K/mm3 (4.8-10.8)
[2023-02-06 07:33] VITALS: BP 158/58; PULSE 92; RESP 18; TEMP 36.4; O2SAT 95
[2023-02-06 07:39] LABS: Alanine Aminotransferase 14 U/L (12-78); Albumin Level 3.2 g/dl (3.5-5.0); Albumin/Globulin Ratio 0.7 (1.1-1.8); Alkaline Phosphatase 64 U/L (38-126); Anion Gap 10.8 mEq/L (5-15); Aspartate Amino Transferase 34 U/L (17-59); Bilirubin,Total 0.3 mg/dl (0.2-1.3); Blood Urea Nitrogen 24 mg/dl (9-20); Calcium 7.4 mg/dl (8.4-10.2); Carbon Dioxide 30 mmol/L (22.0-30.0); Chloride 101 mmol/L (98-107); Creatinine Clearance Estimated 37 mL/min (50-200); Estimated Glomerular Filt Rate 45 ml/min (>60); GFR (African American) 54 ML/MIN (>60); Globulin 4.6 g/dL (1.3-3.2); Glucose 67 mg/dl (74-100); Magnesium 2.5 mg/dl (1.6-2.3); Phosphorous 4.1 mg/dl (2.5-4.5); Potassium 3.8 mmoL/L (3.5-5.1); Sodium 138 mmol/L (136-145); Total Protein,Serum 7.8 g/dl (6.3-8.2)
[2023-02-06 11:23] VITALS: O2SAT 93
--- NOTE | 2023-02-06 13:42 | EXP.ACUTE.PN ---
Subjective *Date: 02/06/23 *Time: 13:42 Interval history: Remains confused and agitated. Unable to provide history Medical Exam Vital signs and Labs for Last 24 Hours: Vital Signs Temp Pulse Pulse Resp BP BP Pulse Ox 02/06/23 11:23 93 L 02/06/23 07:33 97.5 F L 92 H 18 158/58 H 95 02/06/23 04:00 98.4 F 62 18 156/91 H 88 L 02/05/23 20:00 98.4 F 83 18 172/58 H 90 L 02/05/23 20:00 93 L 02/05/23 16:55 98.2 F 74 19 158/60 H 02/05/23 16:00 98.4 F 89 18 165/66 H 93 L 02/05/23 15:00 74 132/100 H 95 02/05/23 14:31 77 158/60 H 94 L 02/05/23 14:01 84 20 142/72 H 94 L Intake and Output 02/05/23 02/06/23 02/06/23 23:59 07:59 15:59 Intake Total 641 / 641 Output Total 32 / 32 220 / 695 475 / 695 Balance -32 / 168 421 / -54 -475 / -54 Intake: Intake, Oral Amount 200 / 200 Intake, Total IV Amount 441 / 441 0.9 % Sodium Chloride 1000ML 1, 441 / 441 000 ml @ 125 mls/hr IV .Q8H [facility] Rx#:[id number] Output: Output, Urine Amount 32 / 32 220 / 695 475 / 695 Other: Number of Unmeasured Voids 1 0 Weight 67.812 kg 66.933 kg Patient Weight 02/06/23 23:59 Weight 66.933 kg Laboratory Results - last 24 hr 02/05/23 10:29: Retic Count (auto) 2.0 02/05/23 10:29: TSH 2.29 02/05/23 10:56: Urine Opiates Screen Negative, Urine Methadone Screen Negative, Ur Barbituates Screen Negative, Ur Phencyclidine Scrn Negative, Ur Amphetamines Screen Negative, U Benzodiazepines Scrn Negative, Urine Cocaine Screen Negative, U Marijuana (THC) Screen Negative 02/05/23 15:34: SARS-CoV-2 (PCR) Not detected, Influenza A Untype (PCR) Not detected, Influenza Type B (PCR) Not detected 02/06/23 06:36: WBC 13.7 H, RBC 3.58 L, Hgb 9.7 L, Hct 30.8 L, MCV 85.9, MCH 27.0, MCHC 31.4 L, RDW 16.2, Plt Count 379, MPV 7.6, Neut % (Auto) 42.3, Lymph % (Auto) 47.0, [place] % (Auto) 7.0, Eos % (Auto) 3.6, Baso % (Auto) 4.3 H, Neut # (Auto) 5.8, Lymph # (Auto) 6.5 H, [place] # (Auto) 1.0, Eos # (Auto) 0.5 H, Baso # (Auto) 0.6 H 02/06/23 06:36: Sodium 138, Potassium 3.8, Chloride 101, Carbon Dioxide 30, Anion Gap 10.8, BUN 24 H, Creatinine 1.50 H, Estimated Creat Clear 37, Estimated GFR 45 L, Est GFR ( Amer) 54 L, Glucose 67 L D, Calcium 7.4 L, Phosphorus 4.1, Magnesium 2.5 H, Total Bilirubin 0.3, AST 34, ALT 14 D, Alkaline Phosphatase 64, Total Protein 7.8, Albumin 3.2 L, Globulin 4.6 H, Albumin/Globulin Ratio 0.7 L I & O for Labs for Last 24 Hours: Intake & Output 02/03/23 02/04/23 02/05/23 02/06/23 23:59 23:59 23:59 23:59 Intake Total 641 / 641 Output Total 695 / 695 Balance -32 / 168 -54 / -54 Weight 67.812 kg 66.933 kg Microbiology Reports for the Last 24 Hours: Microbiology 02/05/23 10:56 Urine,Catheterized Urine Culture - Preliminary NO GROWTH AFTER 24 HOURS Constitutional: Present mild distress, disheveled and combative Comment:: Confused disoriented alert to self only Respiratory: Present normal respiratory effort Cardiac: Present Reg Rate and Rhythm GI: Present normal bowel sounds; Absent tenderness Extremities: Present normal inspection and full ROM Skin: Present intact; Absent erythema Neuro: Present Grossly Intact and moves all extremities Assessment and Plan *Assessment and plan (1) Encephalopathy acute: Status: Acute Category: Medical Code(s): G93.40 - Encephalopathy, unspecified (2) Acute UTI: Status: Acute Category: Medical Code(s): N39.0 - Urinary tract infection, site not specified (3) Type 2 diabetes mellitus with hyperglycemia, without long-term current use of insulin: Status: Acute Category: Medical Code(s): E11.65 - Type 2 diabetes mellitus with hyperglycemia Plan 82-year-old man with progressive encephalopathy of 3 days duration. Patient smells of urine and had blood at his meatus. Mild leukocytosis, with UT
[2023-02-06 15:09] VITALS: BP 162/84; PULSE 76; RESP 18; TEMP 36.9; O2SAT 98
--- NOTE | 2023-02-06 17:50 | PC.NURSE ---
PT HAS BEEN MOSTLY COOPERATIVE THIS SHIFT. TOLERATING ROOM AIR WELL. DID REMOVE PUREWICK. INCONTINENT OF BOWEL AND BLADDER WITH BRIEF IN PLACE. DOES FOLLOW SOME COMMANDS BUT UNABLE TO HOLD MEANINGFUL CONVERSATION. NEW IV PLACE TO RAC. 500 ML BOLUS RECEIVED THIS SHIFT.
[2023-02-06 20:00] VITALS: BP 134/74; TEMP 37.1; O2SAT 90
[2023-02-07] VITALS (7 sets, daily range): BP systolic 160–185; BP diastolic 66–95; PULSE 66–91; RESP 17–18; TEMP 36.8–37.4; O2SAT 91–99; BMI 23.3
--- NOTE | 2023-02-07 09:26 | PC.NURSE ---
pt refusing to take medications at this time, will try again later.
--- NOTE | 2023-02-07 13:49 | EXP.ACUTE.PN ---
Subjective *Date: 02/07/23 *Time: 13:49 Interval history: Slightly more oriented, unable to provide history due to delirium Medical Exam Vital signs and Labs for Last 24 Hours: Vital Signs Temp Pulse Resp BP Pulse Ox 02/07/23 11:08 98.9 F 81 17 175/66 H 92 L 02/07/23 07:41 99.3 F 66 18 160/95 H 92 L 02/07/23 04:00 98.2 F 91 H 18 185/94 H 92 L 02/07/23 00:00 98.7 F 84 18 160/87 H 93 L 02/06/23 20:00 90 L 02/06/23 20:00 98.8 F 134/74 90 L 02/06/23 15:09 98.4 F 76 18 162/84 H 98 Intake and Output 02/06/23 02/07/23 02/07/23 23:59 07:59 15:59 Intake Total 2331 / 2332 Output Total 125 / 945 0 / 0 0 / 0 Balance -125 / -304 2331 / 2331 0 / 233 Intake: Intake, Oral Amount 0 / 0 Intake, Total IV Amount 2331 0.9 % Sodium Chloride 1000ML 1, 2331 000 ml @ 125 mls/hr IV .Q8H [facility] Rx#:[id number] Output: Output, Urine Amount 125 / 945 0 / 0 0 / 0 Other: Number of Unmeasured Voids 0 1 1 Weight 67.302 kg Patient Weight 02/07/23 23:59 Weight 67.302 kg Laboratory Results - last 24 hr 02/05/23 10:56: Urine Color Yellow, Urine Appearance Cloudy, Urine pH 6.0, Ur Specific [place] >= 1.030, Urine Protein 2+, Urine Glucose (UA) Negative, Urine Ketones 1+, Urine Blood 2+, Urine Nitrate Negative, Urine Bilirubin 1+ A, Urine Urobilinogen 0.2, Ur Leukocyte Esterase Trace, Urine RBC 5-10, Urine WBC 3-5, Ur Squamous Epith Cells Occasional, Urine Bacteria 2+ I & O for Labs for Last 24 Hours: Intake & Output 02/04/23 02/05/23 02/06/23 02/07/23 23:59 23:59 23:59 23:59 Intake Total 641 / 641 2331 / 2332 Output Total 32 / 32 945 / 945 0 / 0 Balance -32 / 168 -304 / -304 2332 / 2332 Weight 67.812 kg 66.933 kg 67.302 kg Microbiology Reports for the Last 24 Hours: Microbiology 02/05/23 10:56 Urine,Catheterized Urine Culture - Preliminary Gram Positive Cocci Constitutional: Present mild distress, disheveled and combative Comment:: Confused disoriented alert to self only Respiratory: Present normal respiratory effort Cardiac: Present Reg Rate and Rhythm GI: Present normal bowel sounds; Absent tenderness Extremities: Present normal inspection and full ROM Skin: Present intact; Absent erythema Neuro: Present Grossly Intact and moves all extremities Assessment and Plan *Assessment and plan (1) Encephalopathy acute: Status: Acute Category: Medical Code(s): G93.40 - Encephalopathy, unspecified (2) Acute UTI: Status: Acute Category: Medical Code(s): N39.0 - Urinary tract infection, site not specified (3) Type 2 diabetes mellitus with hyperglycemia, without long-term current use of insulin: Status: Acute Category: Medical Code(s): E11.65 - Type 2 diabetes mellitus with hyperglycemia Plan 82-year-old man with progressive encephalopathy of 3 days duration. Patient smells of urine and had blood at his meatus. Mild leukocytosis, with UTI on urine analysis. Culture sent. Empiric Rocephin in ER. Encephalopathy likely secondary to your urinary tract infection exacerbating underlying chronic encephalomalacia. Delirium slightly improving, continue current therapy Delirious encephalopathy improving -Likely secondary to urinary tract infection, treated with Rocephin -We will monitor, bedrest for now -Physical therapy and care management evaluation for placement following resolution of symptoms -Delirium precautions -Can consider low-dose Zyprexa as needed if agitated Urinary tract infection Urine culture grew gram positive cocci -Follow-up urine culture -Condom catheter for incontinence Acute kidney injury -Likely prerenal -Fluid resuscitation -Bladder scan - Improving Anemia -Could be acute from urinary blood loss -Stool occult -Reticulocyte count - monitor US abdoen liver ordered due to multiple sequela of potential liver
--- NOTE | 2023-02-07 16:12 | DIET.NUTRFU ---
Patient continues NPO since admit on 02/05. Receiving IVF for hydration. Renal labs improving at 08/12.5. Patient continues to have delirium with some improvement according to providers note. Wt stable since last admit in Dec 65.7kg. Start oral diet when medically feasible
--- NOTE | 2023-02-07 17:43 | PC.NURSE ---
pt has been confused and uncooperative this shift. unable to engage in meaningful conversation. tolerating room air with room air sat >90%. he has pulled out multiple iv's. frequently tries to climb out of bed. this rn attempted to place new iv but pt will not follow commands and tries to swing at staff. will attempt again
--- NOTE | 2023-02-08 00:12 | PC.NURSE ---
COURTESY ROUND PATIENT AWAKE. ASSISTED PATIENT WITH URINAL . BED ALARM ON AND CALL LIGHT WITHIN REACH . TRASH EMPTIED AND LINENS . WATER PITCHER REFILLED
[2023-02-08 04:00] VITALS: BP 162/82; PULSE 90; RESP 18; TEMP 37.7; O2SAT 91; BMI 22.6
[2023-02-08 08:00] VITALS: BP 150/80; PULSE 89; RESP 18; TEMP 38.2
[2023-02-08 08:31] LABS: Alanine Aminotransferase 18 U/L (12-78); Albumin Level 3.4 g/dl (3.5-5.0); Albumin/Globulin Ratio 0.6 (1.1-1.8); Alkaline Phosphatase 72 U/L (38-126); Aspartate Amino Transferase 39 U/L (17-59); Bilirubin,Total 0.4 mg/dl (0.2-1.3); Blood Urea Nitrogen 18 mg/dl (9-20); Calcium 7.5 mg/dl (8.4-10.2); Carbon Dioxide 27 mmol/L (22.0-30.0); Chloride 98 mmol/L (98-107); Creatinine Clearance Estimated 45 mL/min (50-200); Estimated Glomerular Filt Rate 58 ml/min (>60); GFR (African American) 70 ML/MIN (>60); Globulin 5.4 g/dL (1.3-3.2); Glucose 69 mg/dl (74-100); Magnesium 2.2 mg/dl (1.6-2.3); Sodium 136 mmol/L (136-145); Total Protein,Serum 8.8 g/dl (6.3-8.2)
[2023-02-08 08:35] LABS: Basophils # 0.6 K/mm3 (0-0.2); Basophils % 3.6 % (0.1-2.0); Eosinophils # 0.2 K/mm3 (0.0-0.4); Hemoglobin 10.4 g/dL (14.1-18.0); Lymphocytes # 8.9 K/mm3 (0.7-4.5); Lymphocytes % 50.7 % (10-50); Mean Corpuscular HGB Conc 32.4 g/dL (31.8-35.4); Mean Corpuscular Hemoglobin 27.6 pg (27.0-31.2); Mean Platelet Volume 7.6 fl (7.4-10.4); Monocytes # 1.1 K/mm3 (0.1-1.0); Monocytes % 6.5 % (1.7-9.3); Neutrophils # 7.3 K/mm3 (1.8-7.8); Neutrophils % 41.8 % (37.0-80.0); Platelet Count 402 K/mm3 (142-424); Red Blood Count 3.76 M/mm3 (4.60-6.20); Red Cell Distribution Width 16.4 % (11.5-17.5); White Blood Count 17.5 K/mm3 (4.8-10.8)
[2023-02-08 08:37] LABS: MANUAL DIFFERENTIAL MANUAL DIFFERENTIAL (MANUAL DIFF)
[2023-02-08 08:53] LABS: Lymphocytes % 29 % (10-50); Monocytes % 6 % (2-9); Neutrophils % 65 % (42-76); Total Cells Counted 100
[2023-02-08 08:54] LABS: Platelet Estimate Normal; RBC Morphology Normal
--- NOTE | 2023-02-08 09:02 | EXP.PHA.CONS ---
Pharmacy Consult Date: 02/08/23 Time: 09:02 Referring provider: DR. RETANA Reason for Consult:: VANCOMYCIN DOSING Allergies Allergy/AdvReac Type Severity Reaction Status Date / Time No Known Allergies Allergy Verified 12/24/22 10:50 Home Medications Medication Instructions Recorded Confirmed Type clopidogrel 75 mg tablet 75 mg PO DAILY Blood thinner 06/06/19 02/05/23 History levetiracetam 500 mg tablet 500 mg PO DAILY SEIZURES 06/06/19 02/05/23 History meloxicam 15 mg tablet 15 mg PO DAILY Pain 06/06/19 02/05/23 History metoprolol tartrate 25 mg tablet 25 mg PO BID Hypertension 06/06/19 02/05/23 History atorvastatin 20 mg tablet 20 mg PO HS Cholesterol 06/30/19 02/06/23 History cholecalciferol (vitamin D3) 25 1,000 unit PO DAILY Supplement 06/30/19 02/05/23 History mcg (1,000 unit) capsule magnesium oxide 400 mg PO DAILY Supplement 06/30/19 02/05/23 History mirtazapine 30 mg tablet 30 mg PO HS ANTIDEPRESSANT 06/30/19 02/06/23 History levothyroxine 75 mcg tablet 75 mcg PO DAILY THYROID 05/14/21 02/05/23 History metformin 500 mg tablet 500 mg PO BIDWMEAL Diabetes 05/14/21 02/06/23 History aspirin 81 mg tablet,delayed 81 mg PO DAILY CIRCULATION 02/06/23 02/06/23 History release buspirone 10 mg tablet 10 mg PO TID Depression 02/06/23 02/06/23 History clonazepam 1 mg tablet 1 mg PO DAILY Anxiety 02/06/23 02/06/23 History donepezil 5 mg tablet 5 mg PO HS DEMENTIA 02/06/23 02/06/23 History levetiracetam 500 mg tablet 1,000 mg PO HS SEIZURES 02/06/23 02/06/23 History meclizine 25 mg tablet 25 mg PO TID DIZZINESS 02/06/23 02/06/23 History nystatin 100,000 unit/gram topical 1 applic topical DAILY ANTIFUNGAL 02/06/23 02/06/23 History ointment phenytoin sodium extended 100 mg 100 mg PO HS SEIZURES 02/06/23 02/06/23 History capsule phenytoin sodium extended 100 mg 200 mg PO DAILY SEIZURES 02/06/23 02/06/23 History capsule ranolazine 1,000 mg 1,000 mg PO BID HEART 02/06/23 02/06/23 History tablet,extended release,12 hr New Prescriptions to Start Prescriptions: Height: 1.7 m Weight: 65.346 kg Laboratory Results:: Laboratory Results - last 24 hr 02/08/23 08:15: WBC 17.5 H D, RBC 3.76 L, Hgb 10.4 L, Hct 32.0 L, MCV 85.0, MCH 27.6, MCHC 32.4, RDW 16.4, Plt Count 402, MPV 7.6, Neut % (Auto) 41.8, Lymph % (Auto) 50.7 H, [place] % (Auto) 6.5, Eos % (Auto) 1.0, Baso % (Auto) 3.6 H, Neut # (Auto) 7.3, Lymph # (Auto) 8.9 H, [place] # (Auto) 1.1 H, Eos # (Auto) 0.2, Baso # (Auto) 0.6 H, Total Counted 100, Neutrophils % (Manual) 65, Lymphocytes % (Manual) 29, Monocytes % (Manual) 6, Platelet Estimate Normal, RBC Morphology Normal 02/08/23 08:15: Sodium 136, Potassium 4.0, Chloride 98, Carbon Dioxide 27, Anion Gap 15.0, BUN 18, Creatinine 1.20, Estimated Creat Clear 45, Estimated GFR 58 L, Est GFR ( Amer) 70 D, Glucose 69 L, Calcium 7.5 L, Phosphorus 4.0, Magnesium 2.2 D, Total Bilirubin 0.4, AST 39, ALT 18 D, Alkaline Phosphatase 72, Total Protein 8.8 H, Albumin 3.4 L, Globulin 5.4 H, Albumin/Globulin Ratio 0.6 L Assessment and Plan Assessment and plan all Dx Assessment and Plan for all problems:: Pharmacokinetic dosing service Objective: Patient: Floor: Age: 82 yo Serum creatinine: 1.2 mg/dL Height: 66.9 Inches Weight (kg): 65 Assessment: IBW (kg): 65.87 Dosing wt(kg): 65 Estimated Creatinine clearance (ml/min): 44.4 CRCL method: Cockcroft and Gault using ibw(default). Drug selected: Vancomycin Loading dose (mg): 0 Vd (liters): 52.0 (factor used: 0.8 L/kg) Jani (hr-1): 0.041 Half life (hrs): 16.91 Recommended dose: 1250 mg Interval: 24 hrs Infusion time (hrs): 2.0 Predicted peak (mcg/mL): 36.9 Predicted trough (mcg/mL): 14.97 Total body weight is being used for vancomycin dosing. Recommendations: Give Vancomycin 1250 mg q 24 hrs with an expected Cp
[2023-02-08 09:51] LABS: POC Glucose,Bedside 71 (70-110)
--- NOTE | 2023-02-08 10:04 | HMH.OTEV ---
OT Inpatient Evaluation Rehab OT IP Evaluation Start: 02/08/23 09:15 Freq: ONCE Status: Active Protocol: Document 02/08/23 09:44 ALDAIRTALON (Rec: 02/08/23 10:04 LUIS FERNANDO [id number]) Rehab OT IP Assessment Subjective History Patient is an 82-year-old male presenting with altered mental status.? History was obtained from the patient, EMS , and his caregiver, his caregiver who is a primary historian with the most concise and accurate information.? She states that he has been altered for the last 3 days that he is normally coherent at baseline but has been speaking out of his mind and that he has been trying to find his sister who is as well as doing things like drinking tobacco juice.? She states he is also been screaming and yelling and hallucinating at night.? He seems to be better during the day.? Preceding this he has had no fevers chills or other symptoms according to her and she sees him on a daily basis. ? No changes in medications that she is aware of.? The patient himself states that he has no current pain and he believes he is here because he had worsening falls lately.? Caregiver does confirm that he fell recently while getting out of his car scraped up his right hand but had no other significant injuries and did not hit his head that she is aware of.? She states only time she seen him like this in the past was around the time that his years ago.? Remainder of history from the patient is significantly limited as he is a poor historian but also is disoriented to time.
--- NOTE | 2023-02-08 10:18 | SW/DCPLANNER ---
Addendum entered by Shey Nicholson 02/08/23 14:05: Rachelle w/ [facility] is coming to [facility] to assess this patient. Original Note: I spoke with patient's caregiver (Kelle) regarding plans once medically stable for discharge. PT/OT evaluated patient and recommended SNF level of care at time of discharge. Kelle stated that patient has some confusion at home but it progressed on Wednesday which brought him into the hospital. Kelle stated that patient was doing okay physically until becoming more confused. Kelle is agreeable for patient information to be faxed to [email or web address] at this time due to patient residing in [facility]. Patient is still confused at this time. Discharge date is unknown at this time but I will fax patient information.
--- NOTE | 2023-02-08 11:00 | HMH.PTEV ---
Physical Therapy Evaluation Rehab PT IP Evaluation Start: 02/08/23 09:14 Freq: ONCE Status: Active Protocol: Document 02/08/23 10:11 SARA (Rec: 02/08/23 10:34 SARA [id number]) Subjective/History History History Pt is a 82 year old male that presented to the ED via EMS on 02/05/23 with AMS for 3 days. Per pt's caregiver, he had increasing confusion and hallucinations at home. Pt was found to have a UTI on urine analysis and was given Empiric Rocephin in ER. Subjective Subjective Pt presents supine in bed doffing brief upon therapist arrival, appears confused but agreeable to therapy intial evaluation. Pt denies reports of pain at rest. Pt experienced an incontinent episode during subjective history but was unaware of event. Pt unable to provide social history during subjective assessment, history for evaluation was obtained from H&P and CM. Rehab PT IP Eval Objective Appearance Patient Behavior Cooperative,Fatigued,Confused Patient Orientation Person,Birthday Difficulty following instructions severe Speech Pattern Slurred,Mumbled,Difficulty Finding Words Ambulation Patient Able to Ambulate No Balance Ability to Arise Able, uses arms to help Sitting Balance Leans or slides in chair Standing Balance Unsteady Dynamic Sitting Balance Ability Poor Dynamic Standing Balance Ability Poor Transfers Bed Transfer Ability Moderate x 2 (50% assist) Chair Transfer Ability Moderate x 2 (50% assist) Sit to Stand Bed Transfer Ability Moderate x 2 (50% assist) Sit to Stand Chair Transfer Ability Moderate x 2 (50% assist) ROM RLE PT ROM Status WFL Abnormal ROM Comment BLE AROM WFL as seen during visual assessment LLE PT ROM Status WFL Abnormal ROM Comment BLE AROM WFL as seen during visual assessment MMT RLE PT MMT WFL Abnormal MMT Grade BLE MMT WFL as seen during visual assessment LLE PT MMT
[2023-02-08 14:55] VITALS: BMI 22.4
[2023-02-08 15:30] VITALS: BP 136/66; PULSE 84; RESP 18; TEMP 37.5; O2SAT 92
--- NOTE | 2023-02-08 16:55 | PC.NURSE ---
Patient increasingly alert and appropriate throughout shift. No longer pulling at lines and using call light appropriately. Tolerating oral intake. Low fever this am. Resolved. Up with 1 to bedside commode for BM. Incontinent of urine. Continue IV abx
[2023-02-08 20:00] VITALS: BP 136/64; PULSE 91; RESP 18; TEMP 37.1; O2SAT 96
--- NOTE | 2023-02-08 22:50 | EXP.ACUTE.PN ---
Subjective *Date: 02/08/23 *Time: 14:50 Interval history: Patient was confused overnight, has cleared his mentation through the day. On morning rounds answered but did not open eyes to questions. After lunch, patient is awake and alert to person and place. States he is feeling better. Tolerating room air. No nausea or vomiting. No chest pain. Medical Exam Vital signs and Labs for Last 24 Hours: Vital Signs Temp Pulse Resp BP Pulse Ox 02/08/23 20:00 98.8 F 91 H 18 136/64 96 02/08/23 15:30 99.5 F 84 18 136/66 92 L 02/08/23 08:00 100.8 F H 89 18 150/80 H 02/08/23 04:00 99.9 F H 90 18 162/82 H 91 L Intake and Output 02/08/23 02/08/23 02/08/23 07:59 15:59 23:59 Intake Total 600 / 1000 400 / 1000 Output Total 0 / 0 Balance 600 / 1000 400 / 1000 Intake: Intake, Oral Amount 600 / 1000 400 / 1000 Output: Output, Urine Amount 0 / 0 Other: Number of Unmeasured Voids 1 1 Number of Bowel Movements 1 Weight 65.346 kg 65 kg Patient Weight 02/08/23 23:59 Weight 65 kg Laboratory Results - last 24 hr 02/08/23 08:15: WBC 17.5 H D, RBC 3.76 L, Hgb 10.4 L, Hct 32.0 L, MCV 85.0, MCH 27.6, MCHC 32.4, RDW 16.4, Plt Count 402, MPV 7.6, Neut % (Auto) 41.8, Lymph % (Auto) 50.7 H, [place] % (Auto) 6.5, Eos % (Auto) 1.0, Baso % (Auto) 3.6 H, Neut # (Auto) 7.3, Lymph # (Auto) 8.9 H, [place] # (Auto) 1.1 H, Eos # (Auto) 0.2, Baso # (Auto) 0.6 H, Total Counted 100, Neutrophils % (Manual) 65, Lymphocytes % (Manual) 29, Monocytes % (Manual) 6, Platelet Estimate Normal, RBC Morphology Normal 02/08/23 08:15: Sodium 136, Potassium 4.0, Chloride 98, Carbon Dioxide 27, Anion Gap 15.0, BUN 18, Creatinine 1.20, Estimated Creat Clear 45, Estimated GFR 58 L, Est GFR ( Amer) 70 D, Glucose 69 L, Calcium 7.5 L, Phosphorus 4.0, Magnesium 2.2 D, Total Bilirubin 0.4, AST 39, ALT 18 D, Alkaline Phosphatase 72, Total Protein 8.8 H, Albumin 3.4 L, Globulin 5.4 H, Albumin/Globulin Ratio 0.6 L 02/08/23 09:44: POC Glucose 71 I & O for Labs for Last 24 Hours: Intake & Output 02/05/23 02/06/23 02/07/23 02/08/23 23:59 23:59 23:59 23:59 Intake Total 641 / 641 233 / 2332 1000 / 1000 Output Total 945 / 945 0 / 0 0 / 0 Balance -32 / 168 -304 / -304 233 / 2332 1000 / 1000 Weight 67.812 kg 66.933 kg 67.302 kg 65 kg Microbiology Reports for the Last 24 Hours: Microbiology 02/05/23 10:56 Urine,Catheterized Urine Culture - Preliminary Gram Positive Cocci Constitutional: Present no acute distress, disheveled and cooperative Head: Present atraumatic and normocephalic ENT: Present normal exam Respiratory: Present normal respiratory effort; Absent accessory muscle use, rhonchi, wheezes or crackles Cardiac: Present Reg Rate and Rhythm GI: Present normal bowel sounds; Absent tenderness Extremities: Present normal inspection and full ROM Comment:: Ecchymoses on left forearm Skin: Present intact; Absent erythema Neuro: Present Grossly Intact, alert, awake and moves all extremities Comment:: Oriented x 2 Assessment and Plan *Assessment and plan (1) Encephalopathy acute: Status: Acute Category: Medical Code(s): G93.40 - Encephalopathy, unspecified (2) Acute UTI: Status: Acute Category: Medical Code(s): N39.0 - Urinary tract infection, site not specified (3) Type 2 diabetes mellitus with hyperglycemia, without long-term current use of insulin: Status: Acute Category: Medical Code(s): E11.65 - Type 2 diabetes mellitus with hyperglycemia (4) Depressive disorder: Status: Chronic Category: Medical Code(s): F32.9 - Major depressive disorder, single episode, unspecified (5) Encephalomalacia: Status: Chronic Category: Medical Code(s): G93.89 - Other specified disorders of brain (6) Diabetes mellitus: Status: Chronic Qualifiers: Diabetes mellitus typ
[2023-02-09 04:00] VITALS: BP 147/71; PULSE 83; RESP 18; TEMP 37.4; O2SAT 92; BMI 23.3
--- NOTE | 2023-02-09 06:05 | PC.NURSE ---
no changes from previous assessment, pt more alert and oriented this shift, no acute distress, vss
[2023-02-09 06:34] LABS: Monocytes # 0.9 K/mm3 (0.1-1.0)
[2023-02-09 06:44] LABS: Alanine Aminotransferase 15 U/L (12-78); Albumin Level 2.7 g/dl (3.5-5.0); Albumin/Globulin Ratio 0.6 (1.1-1.8); Alkaline Phosphatase 57 U/L (38-126); Anion Gap 7.6 mEq/L (5-15); Aspartate Amino Transferase 30 U/L (17-59); Bilirubin,Total 0.3 mg/dl (0.2-1.3); Blood Urea Nitrogen 19 mg/dl (9-20); Calcium 6.7 mg/dl (8.4-10.2); Carbon Dioxide 27 mmol/L (22.0-30.0); Chloride 103 mmol/L (98-107); Creatinine Clearance Estimated 42 mL/min (50-200); Estimated Glomerular Filt Rate 53 ml/min (>60); GFR (African American) 64 ML/MIN (>60); Globulin 4.6 g/dL (1.3-3.2); Glucose 94 mg/dl (74-100); Potassium 3.6 mmoL/L (3.5-5.1); Sodium 134 mmol/L (136-145); Total Protein,Serum 7.3 g/dl (6.3-8.2)
[2023-02-09 06:52] LABS: Basophils # 1.1 K/mm3 (0-0.2); Basophils % 8.3 % (0.1-2.0); Eosinophils # 0.4 K/mm3 (0.0-0.4); Eosinophils % 2.8 % (0.1-12.0); Hematocrit 28.6 % (42.0-52.0); Lymphocytes # 6.7 K/mm3 (0.7-4.5); Lymphocytes % 51.6 % (10-50); Mean Corpuscular HGB Conc 31.8 g/dL (31.8-35.4); Mean Corpuscular Hemoglobin 27.6 pg (27.0-31.2); Mean Corpuscular Volume 86.7 fl (80-94); Mean Platelet Volume 7.9 fl (7.4-10.4); Monocytes % 6.9 % (1.7-9.3); Neutrophils % 38.6 % (37.0-80.0); Platelet Count 336 K/mm3 (142-424); Red Blood Count 3.29 M/mm3 (4.60-6.20); Red Cell Distribution Width 16.5 % (11.5-17.5); White Blood Count 13.1 K/mm3 (4.8-10.8)
[2023-02-09 06:56] LABS: MANUAL DIFFERENTIAL MANUAL DIFFERENTIAL (MANUAL DIFF)
[2023-02-09 06:57] LABS: Hemoglobin 9.1 g/dL (14.1-18.0)
[2023-02-09 07:30] VITALS: BP 161/79; PULSE 89; RESP 18; TEMP 36.6; O2SAT 90
[2023-02-09 07:43] LABS: Anisocytosis 1+; Hypochromasia 1+; Lymphocytes % 61 % (10-50); Microcytosis 1+; Monocytes % 4 % (2-9); Neutrophils % 33 % (42-76); Platelet Estimate Normal; Total Cells Counted 100
--- NOTE | 2023-02-09 08:29 | EXP.PHA.PN ---
Subjective *Date: 02/09/23 *Time: 08:31 Medical Exam Vital signs and Labs for Last 24 Hours: Vital Signs Temp Pulse Resp BP Pulse Ox 02/09/23 07:30 97.9 F 89 18 161/79 H 90 L 02/09/23 04:00 99.3 F 83 18 147/71 H 92 L 02/08/23 20:00 91 H 96 02/08/23 20:00 98.8 F 91 H 18 136/64 96 02/08/23 15:30 99.5 F 84 18 136/66 92 L Intake and Output 02/08/23 02/09/23 02/09/23 23:59 07:59 15:59 Intake Total 400 / 1000 2582 / 2582 Output Total 0 / 0 Balance 400 / 1000 2582 / 2582 Intake: Intake, Oral Amount 400 / 1000 240 / 240 Intake, Total IV Amount 2342 / 2342 0.9 % Sodium Chloride 1000ML 1, 2342 / 2342 000 ml @ 125 mls/hr IV .Q8H [facility] Rx#:[id number] Output: Output, Urine Amount 0 / 0 Other: Number of Unmeasured Voids 0 1 Weight 67.33 kg Patient Weight 02/09/23 23:59 Weight 67.33 kg Laboratory Results - last 24 hr 02/08/23 08:15: WBC 17.5 H D, RBC 3.76 L, Hgb 10.4 L, Hct 32.0 L, MCV 85.0, MCH 27.6, MCHC 32.4, RDW 16.4, Plt Count 402, MPV 7.6, Neut % (Auto) 41.8, Lymph % (Auto) 50.7 H, [place] % (Auto) 6.5, Eos % (Auto) 1.0, Baso % (Auto) 3.6 H, Neut # (Auto) 7.3, Lymph # (Auto) 8.9 H, [place] # (Auto) 1.1 H, Eos # (Auto) 0.2, Baso # (Auto) 0.6 H, Total Counted 100, Neutrophils % (Manual) 65, Lymphocytes % (Manual) 29, Monocytes % (Manual) 6, Platelet Estimate Normal, RBC Morphology Normal 02/08/23 08:15: Sodium 136, Potassium 4.0, Chloride 98, Carbon Dioxide 27, Anion Gap 15.0, BUN 18, Creatinine 1.20, Estimated Creat Clear 45, Estimated GFR 58 L, Est GFR ( Amer) 70 D, Glucose 69 L, Calcium 7.5 L, Phosphorus 4.0, Magnesium 2.2 D, Total Bilirubin 0.4, AST 39, ALT 18 D, Alkaline Phosphatase 72, Total Protein 8.8 H, Albumin 3.4 L, Globulin 5.4 H, Albumin/Globulin Ratio 0.6 L 02/08/23 09:44: POC Glucose 71 02/09/23 05:46: WBC 13.1 H D, RBC 3.29 L, Hgb 9.1 L D, Hct 28.6 L, MCV 86.7, MCH 27.6, MCHC 31.8, RDW 16.5, Plt Count 336, MPV 7.9, Neut % (Auto) 38.6, Lymph % (Auto) 51.6 H, [place] % (Auto) 6.9, Eos % (Auto) 2.8, Baso % (Auto) 8.3 H, Neut # (Auto) 5.0, Lymph # (Auto) 6.7 H, [place] # (Auto) 0.9, Eos # (Auto) 0.4, Baso # (Auto) 1.1 H, Total Counted 100, Neutrophils % (Manual) 33 L, Lymphocytes % (Manual) 61 H, Monocytes % (Manual) 4, Blast Cells % 2.0, Platelet Estimate Normal, Hypochromasia 1+, Anisocytosis 1+, Microcytosis 1+ 02/09/23 05:46: Sodium 134 L, Potassium 3.6, Chloride 103, Carbon Dioxide 27, Anion Gap 7.6, BUN 19, Creatinine 1.30 H, Estimated Creat Clear 42, Estimated GFR 53 L, Est GFR ( Amer) 64, Glucose 94 D, Calcium 6.7 L, Total Bilirubin 0.3, AST 30, ALT 15, Alkaline Phosphatase 57, Total Protein 7.3, Albumin 2.7 L D, Globulin 4.6 H, Albumin/Globulin Ratio 0.6 L I & O for Labs for Last 24 Hours: Intake & Output 02/06/23 02/07/23 02/08/23 02/09/23 23:59 23:59 23:59 23:59 Intake Total 641 / 641 2332 / 2332 1000 / 1000 2582 / 2582 Output Total 945 / 945 0 / 0 0 / 0 0 / 0 Balance -304 / -304 2332 / 2332 1000 / 1000 258 / 2582 Weight 66.933 kg 67.302 kg 65 kg 67.33 kg Microbiology Reports for the Last 24 Hours: Microbiology 02/05/23 10:56 Urine,Catheterized Urine Culture - Final Aerococcus species The patient's infection will respond to the chosen ABx?: Yes (URINE = AEROCOCCUS UTI, ROCEPHIN SHOULD COVER, NO SENSITIVITIES PERFORMED.) Is the patient receiving the right drug, dose, and route?: Yes Could a more targeted ABx be ordered?: No
--- NOTE | 2023-02-09 10:40 | CARE MANAGER ---
Addendum entered by Gena Schwartz RN 02/09/23 16:00: [facility] cannot accept. I sent information to [facility]. Spoke with Kelle the patient's caregiver and she was agreeable with [facility] in [place]. Left a message for admissions there. Original Note: Spoke with Rachelle from [facility] and they cannot accept patient at this time. Spoke with Kelle, patient crown and bridge dental lab technician and she requests [facility]. Information was faxed to Letty at [facility], awaiting return call.
[2023-02-09 15:02] VITALS: BP 162/66; PULSE 82; RESP 18; TEMP 36.7; O2SAT 95
--- NOTE | 2023-02-09 17:10 | PC.NURSE ---
Pt alert and oriented throughout day with increasing restlessness this evening. VSS. On room air. Denies pain. Up with 1 to BR for voids. Possible discharge 02/10 pending placement arrangements
--- NOTE | 2023-02-09 18:31 | EXP.ACUTE.PN ---
Subjective *Date: 02/09/23 *Time: 10:31 Interval history: Patient more alert this morning. Oriented to self and place. Significant improvement in mentation. Meeting criteria for discharge, will need placement however. Denies chest pain, shortness of breath, nausea, vomiting. Adequate urine output. Globally weak Medical Exam Vital signs and Labs for Last 24 Hours: Vital Signs Temp Pulse Resp BP Pulse Ox 02/09/23 15:02 98.0 F 82 18 162/66 H 95 02/09/23 07:30 97.9 F 89 18 161/79 H 90 L 02/09/23 04:00 99.3 F 83 18 147/71 H 92 L 02/08/23 20:00 91 H 96 02/08/23 20:00 98.8 F 91 H 18 136/64 96 Intake and Output 02/09/23 02/09/23 02/09/23 07:59 15:59 23:59 Intake Total 2582 / 3662 360 / 3662 720 / 3662 Output Total 0 / 0 0 / 0 Balance 2582 / 3662 360 / 3662 720 / 3662 Intake: Intake, Oral Amount 240 / 1320 360 / 1320 720 / 1320 Intake, Total IV Amount 2342 / 2342 0.9 % Sodium Chloride 1000ML 1, 2342 / 2342 000 ml @ 125 mls/hr IV .Q8H [facility] Rx#:[id number] Output: Output, Urine Amount 0 / 0 0 / 0 Other: Number of Unmeasured Voids 1 1 Weight 67.33 kg Patient Weight 02/09/23 23:59 Weight 67.33 kg Laboratory Results - last 24 hr 02/09/23 05:46: WBC 13.1 H D, RBC 3.29 L, Hgb 9.1 L D, Hct 28.6 L, MCV 86.7, MCH 27.6, MCHC 31.8, RDW 16.5, Plt Count 336, MPV 7.9, Neut % (Auto) 38.6, Lymph % (Auto) 51.6 H, [place] % (Auto) 6.9, Eos % (Auto) 2.8, Baso % (Auto) 8.3 H, Neut # (Auto) 5.0, Lymph # (Auto) 6.7 H, [place] # (Auto) 0.9, Eos # (Auto) 0.4, Baso # (Auto) 1.1 H, Total Counted 100, Neutrophils % (Manual) 33 L, Lymphocytes % (Manual) 61 H, Monocytes % (Manual) 4, Blast Cells % 2.0, Platelet Estimate Normal, Hypochromasia 1+, Anisocytosis 1+, Microcytosis 1+ 02/09/23 05:46: Sodium 134 L, Potassium 3.6, Chloride 103, Carbon Dioxide 27, Anion Gap 7.6, BUN 19, Creatinine 1.30 H, Estimated Creat Clear 42, Estimated GFR 53 L, Est GFR ( Amer) 64, Glucose 94 D, Calcium 6.7 L, Total Bilirubin 0.3, AST 30, ALT 15, Alkaline Phosphatase 57, Total Protein 7.3, Albumin 2.7 L D, Globulin 4.6 H, Albumin/Globulin Ratio 0.6 L I & O for Labs for Last 24 Hours: Intake & Output 02/06/23 02/07/23 02/08/23 02/09/23 23:59 23:59 23:59 23:59 Intake Total 641 / 641 2332 / 2332 1000 / 1000 3662 / 3662 Output Total 945 / 945 0 / 0 0 / 0 0 / 0 Balance -304 / -304 2332 / 2332 1000 / 1000 3662 / 3662 Weight 66.933 kg 67.302 kg 65 kg 67.33 kg Microbiology Reports for the Last 24 Hours: Microbiology 02/05/23 10:56 Urine,Catheterized Urine Culture - Final Aerococcus species Constitutional: Present no acute distress and cooperative Head: Present atraumatic and normocephalic ENT: Present normal exam Respiratory: Present normal respiratory effort; Absent accessory muscle use, rhonchi, wheezes or crackles Cardiac: Present Reg Rate and Rhythm GI: Present normal bowel sounds; Absent tenderness Extremities: Present normal inspection and full ROM Comment:: Ecchymoses on left forearm Skin: Present intact; Absent erythema Neuro: Present Grossly Intact, alert, awake and moves all extremities Comment:: Oriented x 2 Assessment and Plan *Assessment and plan (1) Encephalopathy acute: Status: Acute Category: Medical Code(s): G93.40 - Encephalopathy, unspecified (2) Acute UTI: Status: Acute Category: Medical Code(s): N39.0 - Urinary tract infection, site not specified (3) Type 2 diabetes mellitus with hyperglycemia, without long-term current use of insulin: Status: Acute Category: Medical Code(s): E11.65 - Type 2 diabetes mellitus with hyperglycemia (4) Depressive disorder: Status: Chronic Category: Medical Code(s): F32.9 - Major depressive disorder, single episode, unspecified (5) Encephalomalacia: Status: Chronic Category: Medical Code(s): G93.89
[2023-02-09 20:00] VITALS: BP 151/75; PULSE 77; RESP 18; TEMP 37.6; O2SAT 95
[2023-02-10] VITALS: BP 157/73; PULSE 73; RESP 18; TEMP 37.2; O2SAT 94
[2023-02-10 04:00] VITALS: BP 158/80; PULSE 75; RESP 20; TEMP 36.7; O2SAT 94; BMI 23.3
[2023-02-10 07:08] LABS: Basophils # 0.7 K/mm3 (0-0.2); Eosinophils # 0.4 K/mm3 (0.0-0.4); Eosinophils % 2.6 % (0.1-12.0); Hematocrit 30.4 % (42.0-52.0); Hemoglobin 9.7 g/dL (14.1-18.0); Lymphocytes # 7.2 K/mm3 (0.7-4.5); Lymphocytes % 48.7 % (10-50); Mean Corpuscular HGB Conc 31.8 g/dL (31.8-35.4); Mean Corpuscular Hemoglobin 27.2 pg (27.0-31.2); Mean Corpuscular Volume 85.4 fl (80-94); Mean Platelet Volume 8.3 fl (7.4-10.4); Monocytes # 1.1 K/mm3 (0.1-1.0); Monocytes % 7.1 % (1.7-9.3); Neutrophils # 6.1 K/mm3 (1.8-7.8); Neutrophils % 41.5 % (37.0-80.0); Platelet Count 315 K/mm3 (142-424); Red Blood Count 3.56 M/mm3 (4.60-6.20); Red Cell Distribution Width 16.7 % (11.5-17.5); White Blood Count 14.8 K/mm3 (4.8-10.8)
[2023-02-10 07:17] LABS: Alanine Aminotransferase 18 U/L (12-78); Albumin Level 2.8 g/dl (3.5-5.0); Albumin/Globulin Ratio 0.6 (1.1-1.8); Alkaline Phosphatase 52 U/L (38-126); Anion Gap 10.4 mEq/L (5-15); Aspartate Amino Transferase 33 U/L (17-59); Bilirubin,Total 0.3 mg/dl (0.2-1.3); Blood Urea Nitrogen 20 mg/dl (9-20); Calcium 7.1 mg/dl (8.4-10.2); Carbon Dioxide 24 mmol/L (22.0-30.0); Chloride 105 mmol/L (98-107); Creatinine Clearance Estimated 42 mL/min (50-200); Estimated Glomerular Filt Rate 53 ml/min (>60); GFR (African American) 64 ML/MIN (>60); Glucose 122 mg/dl (74-100); Potassium 4.4 mmoL/L (3.5-5.1); Sodium 135 mmol/L (136-145); Total Protein,Serum 7.8 g/dl (6.3-8.2)
[2023-02-10 08:00] VITALS: BP 142/65; PULSE 85; RESP 18; TEMP 36.8; O2SAT 91
[2023-02-10 09:59] LABS: Vancomycin,Trough 5.9 ug/mL (5.0-10.0)
--- NOTE | 2023-02-10 10:00 | CARE MANAGER ---
[facility] and [facility] has no beds at this time. I did reach back out to retail cosmetics sales beauty advisor, Kelle who states that she feels she can take the patient home with no issues. Conversation will be had with MD to determine if that is a safe plan or not.
--- NOTE | 2023-02-10 10:58 | EXP.DC.SUM ---
General Admission date:: 02/05/23 Discharge date: 02/10/23 HPI HPI HPI: Patient is an 82-year-old male presenting with altered mental status.? History was obtained from the patient, EMS, and his caregiver, his caregiver who is a primary historian with the most concise and accurate information.? She states that he has been altered for the last 3 days that he is normally coherent at baseline but has been speaking out of his mind and that he has been trying to find his sister who is as well as doing things like drinking tobacco juice.? She states he is also been screaming and yelling and hallucinating at night.? He seems to be better during the day.? Preceding this he has had no fevers chills or other symptoms according to her and she sees him on a daily basis.? No changes in medications that she is aware of.? The patient himself states that he has no current pain and he believes he is here because he had worsening falls lately.? Caregiver does confirm that he fell recently while getting out of his car scraped up his right hand but had no other significant injuries and did not hit his head that she is aware of.? She states only time she seen him like this in the past was around the time that his years ago.? Remainder of history from the patient is significantly limited as he is a poor historian but also is disoriented to time. Hospital Course Hospital Course Hospital Course: 82-year-old man with progressive encephalopathy of 3 days duration.? Improving today with his mentation. Mild worsening of leukocytosis. UC still pending, positive for GPCs.? Encephalopathy likely secondary to urinary tract infection exacerbating underlying chronic encephalomalacia.? Back to baseline mentation.? Stable for discharge.? Improved in function to level of safety he can be discharged home with HH PT/OT. Care given to check on him regularly. Problems addressed as follows:: Delirious encephalopathy, resolved Encephalomalacia Depressive disorder -Likely secondary to urinary tract infection. Improved with treatment of UTI. Gradual improvement over the first 48 hours of admission with mentation. Able to participate with therapy, saw continued improvement by day of discharge to the level of being independent enough to go home with home health and caregiver checking on him regularly. Continued phenytoin, diazepam, buspirone, and mirtazepine for Mood once able to tolerate p.o. meds. We will during admission. Ammonia marginally elevated above upper limit of normal at 36. Both unlikely as etiologies for his confusion. On admission with normal PCO2 and PO2. Urinary tract infection Urine culture grew gram positive cocci -UTI present on admission. Urine culture obtained showing Aerococcus. Given sensitivity profile, transitioned to amoxicillin to complete 7-day course for complex UTI. Voiding independently by day of discharge. Acute kidney injury: 1.7 on admission, improved to baselin of 1.3 on day of discharge Stable for DC home. Close follow-up with PCP Exam Data for Last 24 hours Vital signs and Labs for Last 24 Hours: Temp Pulse Resp BP Pulse Ox 98.3 F 85 18 142/65 H 91 L 02/10/23 08:00 02/10/23 08:00 02/10/23 08:00 02/10/23 08:00 02/10/23 08:00 Laboratory Results - last 24 hr 02/10/23 06:55: WBC 14.8 H, RBC 3.56 L, Hgb 9.7 L, Hct 30.4 L, MCV 85.4, MCH 27.2, MCHC 31.8, RDW 16.7, Plt Count 315, MPV 8.3, Neut % (Auto) 41.5, Lymph % (Auto) 48.7, [place] % (Auto) 7.1, Eos % (Auto) 2.6, Baso % (Auto) 5.0 H, Neut # (Auto) 6.1, Lymph # (Auto) 7.2 H, [place] # (Auto) 1.1 H, Eos # (Auto) 0.4, Baso # (Auto) 0.7 H 02/10/23 06:55: Sodium 135 L, Potassium 4.4 D, Chloride 105, Carbon Dioxide 24, Anion Gap 10.4, BUN 20, Creatinine 1.30 H, Estimated Creat Clear 42, Estimated GFR 53 L, Est GFR ( Amer) 64, Glucose 122 H, Calcium 7.1 L, Total Bilirubin 0.3, AST 33, ALT 18, Alkaline Phosphatase 52, Total Protein 7.8, Albumin 2.8 L, Globulin 5.0 H, Albumin/Globu
--- NOTE | 2023-02-10 12:59 | CARE MANAGER ---
Patient is discharging home with home health and [facility]. Patient customer care manager chose [facility], information and orders were faxed.
== END 2023-02-10 14:50 | disposition home health service (06) ==
LOC: ER 12:37 → 2ND 15:16
PROVIDERS: Internal Medicine Adolescent Medicine; Admitting Provider Student in an Organized Health Care Education/Training Program; Emergency Provider Student in an Organized Health Care Education/Training Program; Visit Provider Student in an Organized Health Care Education/Training Program
DX: G93.40 Encephalopathy, unspecified (principal); R29.6 Repeated falls; N39.0 Urinary tract infection, site not specified; E11.65 Type 2 diabetes mellitus with hyperglycemia; F32.9 Major depressive disorder, single episode, unspecified; E03.9 Hypothyroidism, unspecified; Z79.899 Other long term (current) drug therapy; G93.89 Other specified disorders of brain; R44.3 Hallucinations, unspecified; Z20.822 Contact with and (suspected) exposure to COVID-19; F15.10 Other stimulant abuse, uncomplicated; Z79.02 Long term (current) use of antithrombotics/antiplatelets; Z79.84 Long term (current) use of oral hypoglycemic drugs; Z79.01 Long term (current) use of anticoagulants
CPT/HCPCS: G0378; 36415; 70450; 71045; 76705; 80053; 80202; 80305; 81001; 82140; 82803; 82962; 83735; 84100; 84443; 85007; 85025; 85044; 85610; 85730; 87086; 87088; 87186; 93005; 97110; 97116; 97162; 97165; 97530; 99285; C9803; J0696; U0003; U0005

== ENCOUNTER 2023-02-11 11:19 | Observation (INO) | payer MEDICARE, MEDICAID, SELFPAY ==
[2023-02-11] VITALS (7 sets, daily range): BP systolic 148–177; BP diastolic 62–88; PULSE 73–88; RESP 16–18; TEMP 36.4–36.6; O2SAT 92–96; BMI 22.2; BMI 24.3
--- NOTE | 2023-02-11 11:23 | PC.NURSE ---
Warm blanket provided.
--- NOTE | 2023-02-11 11:35 | HMH.EDGENADL ---
Discharge Plan Disposition Patient Disposition: Admitted As Inpatient Prescriptions Prescriptions: No Action cholecalciferol (vitamin D3) 1,000 unit capsule 1,000 unit PO DAILY atorvastatin 20 mg tablet 20 mg PO HS magnesium oxide 400 mg magnesium capsule 400 mg PO DAILY mirtazapine 30 mg tablet 30 mg PO HS metformin 500 mg tablet 500 mg PO BIDWMEAL levothyroxine 75 mcg tablet 75 mcg PO DAILY levetiracetam 500 MG tablet 500 mg PO DAILY Rx Instructions: TAKE ON IN THE MORNING AND 2 AT BEDTIME meloxicam 15 MG tablet 15 mg PO DAILY clopidogrel 75 MG tablet 75 mg PO DAILY metoprolol tartrate 25 MG tablet 25 mg PO BID levetiracetam 500 mg tablet 1,000 mg PO HS phenytoin sodium extended 100 mg capsule 100 mg PO HS phenytoin sodium extended 100 mg capsule 200 mg PO DAILY ranolazine 1,000 mg tablet extended release 12 hr 1,000 mg PO BID aspirin 81 mg Tablet,Delayed Release (Dr/Ec) 81 mg PO DAILY buspirone 10 mg tablet 10 mg PO TID donepezil 5 mg tablet 5 mg PO HS nystatin 100,000 unit/gram ointment 1 applic TOPICAL DAILY meclizine 25 mg tablet 25 mg PO TID clonazepam 1 mg tablet 1 mg PO DAILY amoxicillin 500 mg Capsule 500 mg PO TID 2 Days Qty: 6 0RF Clinical Impressions Clinical Impression: Falls, Hospital admission due to social situation Discharge ED Provider: Rafia Metzger General Adult HPI General Chief complaint: Fall Stated complaint: Fall Time Seen by Provider: 02/11/23 11:35 Mode of Arrival: EMS Source of Information: EMS Limitations: Physical Limitations Description of Symptoms (Recalled from ER Triage Doc. by RN): Presents via EMS d/t mechanical fall while attempting to ambulate outside. EMS reports he fell in the grass. Neg head trauma. Neg LOC. Neg blood thinners. C/o right knee pain. Hx of arthritis to knee. Ambulates with assistance of cane. Pt ambulatory dining room captain. History of Present Illness HPI narrative: 82-year-old male presents status post falls. Patient was recently admitted in the hospital for encephalopathy secondary to urinary tract infection. I actually personally took care of the emergency department and he was quite encephalopathic at that time he is significantly improved from that standpoint today and his history is not limited today. He states that he has been home and has been falling very frequently. He states its been too numerous to count. He was discharged with PT OT and home health he states that he has been having home health coming by. However his caregiver believes that he should be in a intermediate and he does not want to be in a intermediate and he wants to go home, she is not currently here to provide history. He denies any injuries with his falls states that he has no head injury no neck pain no neck injury no chest abdomen pelvis or long bone pain. He also has no urinary tract infection symptoms. He states the main reason is here is just because he is have been having falls. Related Data Home Medications Medication Instructions Recorded Confirmed clopidogrel 75 mg tablet 75 mg PO DAILY platelet inhibitor 06/06/19 02/05/23 levetiracetam 500 mg tablet 500 mg PO DAILY seizure disorder 06/06/19 02/05/23 meloxicam 15 mg tablet 15 mg PO DAILY Pain 06/06/19 02/05/23 metoprolol tartrate 25 mg tablet 25 mg PO BID Hypertension 06/06/19 02/05/23 atorvastatin 20 mg tablet 20 mg PO HS Cholesterol 06/30/19 02/06/23 cholecalciferol (vitamin D3) 25 1,000 unit PO DAILY Supplement 06/30/19 02/05/23 mcg (1,000 unit) capsule magnesium oxide 400 mg PO DAILY Supplement 06/30/19 02/05/23 mirtazapine 30 mg tablet 30 mg PO HS anxiety/depression 06/30/19 02/06/23 levothyroxine 75 mcg tablet 75 mcg PO DAILY thyroid 05/14/21 02/05/23 metformin 500 mg tablet 500 mg PO BIDWMEAL Diabetes 05/14/21 02/06/23 aspirin 81 mg tablet,delayed 81 mg PO DAILY Heart
--- NOTE | 2023-02-11 12:23 | PC.NURSE ---
ER spoke with Kelle (pt acute care nursing assistant), stating she is stating she can not take care of pt at home. Contacted care management per ER MD request to inform of them acute care nursing assistant wanting placement for pt. Spoke with Molly Keller, state they tried to place pt prior to d/c yesterday states no facility would agree to accept pt. States she will come down and speak with acute care nursing assistant when she arrives to the ED. notified ER
--- NOTE | 2023-02-11 13:01 | PC.NURSE ---
Case Management at bedside.
--- NOTE | 2023-02-11 13:14 | PC.NURSE ---
patient assisted with urinal
--- NOTE | 2023-02-11 13:32 | CARE MANAGER ---
Spoke with patient furnace caretaker, Kelle who feels that she cannot take the patient back home at this point and time. Placement was attempted numerous places in previous admit to no avail. Information was faxed to [facility] in [place]. I have attempted to reach back out to [facility] to see if they will in fact take this patient now that his confusion has improved. Awaiting call backs.
--- NOTE | 2023-02-11 14:21 | CARE MANAGER ---
Spoke with Letty at [facility], faxed information.
--- NOTE | 2023-02-11 15:58 | PC.NURSE ---
Pt resting at this time.
--- NOTE | 2023-02-11 16:04 | CARE MANAGER ---
Patient has been declined by [facility].
--- NOTE | 2023-02-11 16:13 | PC.NURSE ---
per nga in care management [facility] unable to find placement for pt at this time, states memory care program resident told her she could not take pt home r/t safety.
--- NOTE | 2023-02-11 16:14 | PC.NURSE ---
ADOLFO TINOCO speaking dr. lucas (hospitalist)
[2023-02-11 16:25] LABS: Coronavirus 19, PCR Not Detected (NotDetected); Influenza A, PCR Not Detected (NotDetected); Influenza B, PCR Not Detected (NotDetected)
--- NOTE | 2023-02-11 17:00 | PC.NURSE ---
lab states covid swab will be resulted in approx 4 minutes
--- NOTE | 2023-02-11 17:32 | EXP.HP ---
History of Present Illness *Reason for visit:: Concern for *History of present illness: 82-year-old male presents status post falls.? Patient was recently admitted in the hospital for encephalopathy secondary to urinary tract infection.? I actually admitted him earlier this week and he was quite encephalopathic at that time he is significantly improved from that standpoint today and his history is not limited today.? He states that he has been home and has been falling very frequently.? He states its been too numerous to count.? He was discharged with PT OT and home health he states that he has been having home health coming by.? However his caregiver believes that he should be in a senior care and he does not want to be in a senior care and he wants to go home, she is not currently here to provide history.? He denies any injuries with his falls states that he has no head injury no neck pain no neck injury no chest abdomen pelvis or long bone pain.? He also has no urinary tract infection symptoms.? He states the main reason is here is just because he is have been having falls. [facility] Disclaimer: The information contained in this section may have been updated after the patient was seen, as this information can be updated by other users. Social History (Reviewed 12/24/22 @ 10:50 by Millicent Quinones [facility]) Smoking Status: Current every day smoker alcohol intake: former substance use type: denies use current occupational status: retired Travel in the last 8 weeks: None Review of Systems Review of Systems Review of systems:: unable to obtain Meds Home Medications and Allergies Home Medications Medication Instructions Recorded Confirmed Type clopidogrel 75 mg tablet 75 mg PO DAILY platelet inhibitor 06/06/19 02/05/23 History levetiracetam 500 mg tablet 500 mg PO DAILY seizure disorder 06/06/19 02/05/23 History meloxicam 15 mg tablet 15 mg PO DAILY Pain 06/06/19 02/05/23 History metoprolol tartrate 25 mg tablet 25 mg PO BID Hypertension 06/06/19 02/05/23 History atorvastatin 20 mg tablet 20 mg PO HS Cholesterol 06/30/19 02/06/23 History cholecalciferol (vitamin D3) 25 1,000 unit PO DAILY Supplement 06/30/19 02/05/23 History mcg (1,000 unit) capsule magnesium oxide 400 mg PO DAILY Supplement 06/30/19 02/05/23 History mirtazapine 30 mg tablet 30 mg PO HS anxiety/depression 06/30/19 02/06/23 History levothyroxine 75 mcg tablet 75 mcg PO DAILY thyroid 05/14/21 02/05/23 History metformin 500 mg tablet 500 mg PO BIDWMEAL Diabetes 05/14/21 02/06/23 History aspirin 81 mg tablet,delayed 81 mg PO DAILY Heart disease 02/06/23 02/06/23 History release buspirone 10 mg tablet 10 mg PO TID Depression 02/06/23 02/06/23 History clonazepam 1 mg tablet 1 mg PO DAILY Anxiety 02/06/23 02/06/23 History donepezil 5 mg tablet 5 mg PO HS dementia 02/06/23 02/06/23 History levetiracetam 500 mg tablet 1,000 mg PO HS seizure disorder 02/06/23 02/06/23 History meclizine 25 mg tablet 25 mg PO TID dizziness 02/06/23 02/06/23 History nystatin 100,000 unit/gram topical 1 applic topical DAILY skin 02/06/23 02/06/23 History ointment irritation phenytoin sodium extended 100 mg 100 mg PO HS seizure disorder 02/06/23 02/06/23 History capsule phenytoin sodium extended 100 mg 200 mg PO DAILY seizure disorder 02/06/23 02/06/23 History capsule ranolazine 1,000 mg 1,000 mg PO BID Heart disease 02/06/23 02/06/23 History tablet,extended release,12 hr amoxicillin 500 mg capsule 500 mg PO TID 2 days #6 caps 02/10/23 Rx New Prescriptions to Start Prescriptions: Allergies Allergy/AdvReac Type Severity Reaction Status Date / Time No Known Allergies Allergy Verified 12/24/22 10:50 Exam Data for Last 24 hours Vital signs and Labs for Last 24 Hours: Temp Pulse Resp BP Pulse Ox 98 F 82 18 160/72 H 96 02/11/23 16:37 02/11/23 16:37 02/11/23 16:37 02/11/23 16:37 02/11/23 16:37 Laboratory Results - last 24 hr 02/11/23 16:
--- NOTE | 2023-02-11 17:35 | PC.NURSE ---
per dr. noel reports okay for pt to not have an IV in place
--- NOTE | 2023-02-11 17:36 | PC.NURSE ---
Report given to VINCE Partida
--- NOTE | 2023-02-11 18:10 | PC.NURSE ---
Pt arrived to the floor at this time
--- NOTE | 2023-02-11 19:44 | PC.NURSE ---
spoke with Nba peter regarding patient orders
[2023-02-11 20:36] LABS: Chloride 104 mmol/L (98-107); Potassium 4.1 mmoL/L (3.5-5.1); Sodium 139 mmol/L (136-145)
[2023-02-11 20:39] LABS: Alanine Aminotransferase 16 U/L (12-78); Albumin/Globulin Ratio 0.6 (1.1-1.8); Alkaline Phosphatase 64 U/L (38-126); Anion Gap 7.1 mEq/L (5-15); Aspartate Amino Transferase 31 U/L (17-59); Bilirubin,Total 0.3 mg/dl (0.2-1.3); Blood Urea Nitrogen 20 mg/dl (9-20); Calcium 7.6 mg/dl (8.4-10.2); Carbon Dioxide 32 mmol/L (22.0-30.0); Creatinine Clearance Estimated 39 mL/min (50-200); Estimated Glomerular Filt Rate 45 ml/min (>60); GFR (African American) 54 ML/MIN (>60); Glucose 107 mg/dl (74-100)
[2023-02-11 20:40] LABS: Basophils # 0.6 K/mm3 (0-0.2); Basophils % 5.1 % (0.1-2.0); Eosinophils # 0.4 K/mm3 (0.0-0.4); Eosinophils % 3.2 % (0.1-12.0); Hematocrit 30.9 % (42.0-52.0); Hemoglobin 9.3 g/dL (14.1-18.0); Lymphocytes # 6.6 K/mm3 (0.7-4.5); Lymphocytes % 52.5 % (10-50); Mean Corpuscular HGB Conc 30.2 g/dL (31.8-35.4); Mean Corpuscular Hemoglobin 26.9 pg (27.0-31.2); Monocytes # 0.6 K/mm3 (0.1-1.0); Monocytes % 4.8 % (1.7-9.3); Neutrophils # 4.9 K/mm3 (1.8-7.8); Neutrophils % 39.5 % (37.0-80.0); Platelet Count 319 K/mm3 (142-424); Red Blood Count 3.47 M/mm3 (4.60-6.20); Red Cell Distribution Width 16.7 % (11.5-17.5); White Blood Count 12.5 K/mm3 (4.8-10.8)
[2023-02-11 20:42] LABS: MANUAL DIFFERENTIAL MANUAL DIFFERENTIAL (MANUAL DIFF)
--- NOTE | 2023-02-11 21:30 | PC.NURSE ---
Spoke with hospitalist regarding dvt prophylaxis, stated it was contraindicated d/t freq falls
[2023-02-11 21:53] LABS: Anisocytosis 1+; Eosinophils % 5 % (0-3); Hypochromasia 1+; Lymphocytes % 58 % (10-50); Monocytes % 1 % (2-9); Neutrophils % 35 % (42-76); Platelet Estimate Normal; Total Cells Counted 100
[2023-02-12] VITALS: BP 156/66; PULSE 78; RESP 18; TEMP 36.8; O2SAT 83
--- NOTE | 2023-02-12 01:42 | PC.NURSE ---
Spoke with hospitalist regarding patient not wanting to leave 2L nasal cannula on and o2 sats are 85-87, patient is alert and oriented at this time and denies any sob or pain. hospitalist stated to just monitor the patient.
[2023-02-12 01:45] VITALS: O2SAT 86
[2023-02-12 04:00] VITALS: BMI 24.2
[2023-02-12 04:28] VITALS: BP 148/62; PULSE 77; RESP 18; TEMP 36.8; O2SAT 92
--- NOTE | 2023-02-12 05:56 | PC.NURSE ---
A&Ox4. Patient is waiting for placement. No IV access, MD is aware. Patient has no complaints this am. Bed alarm on.
--- NOTE | 2023-02-12 07:45 | HMH.PHAINT1 ---
Pharmacy Intervention Comments: MEDICATION RECONCILIATION COMPLETED ON PATIENT USING DISCHARGE SUMMARY FROM PREVIOUS ADMISSION. -MENDEZ ANDRE, RITCHIED
[2023-02-12 08:00] VITALS: BP 163/70; PULSE 81; RESP 20; TEMP 37.1; O2SAT 93
--- NOTE | 2023-02-12 09:13 | PC.NURSE ---
tech note; notified nurse of high blood pressure for 0800 vital signs Alise Batista, SRNA
--- NOTE | 2023-02-12 09:59 | HMH.OTEV ---
OT Inpatient Evaluation Rehab OT IP Evaluation Start: 02/12/23 07:23 Freq: ONCE Status: Active Protocol: [facility] (Rec: 02/12/23 09:59 [facility] [id number]) Rehab OT IP Assessment Subjective History Pt oriented x 3 on arrival. Pt agreeable to engage in therapy evaluation. Pt was admitted via ED on 02/11/23 due to continued falls at home. Pt was recently discharged from [facility] with caregiver after being admitted for UTI. However, upon returning home pt continued to have falls and the caregiver believes he needs to go to a alf. Pt claims he was independent with ADLs prior to recent admissions to the hospital. However, he was dependent upon caregiver for completion of all IADLs. Pt was using a walker during ambulation. Subjective Where is everyone at. Objective Patient Orientation Person,Place,Birthday Upper Extremity Gross ROM Min Limitation <25% Shoulder ROM Limitations Muscle Weakness Elbow ROM Limitations Muscle Weakness Wrist Limitations of Range of Motion Muscle Weakness Bed Mobility bed mobility-scooting,bed mobility - supine/sit,bed mobility - rolling Assist Level Contact Guard/Hand Hold Transfer Training Sit/Stand Transfer,Sit/Stand/ Step Transfer Assist Level Contact Guard/Hand Hold Rehab OT IP prob,goals,plan Problems Date of Evaluation: 02/12/23 OT IP Problems Bed Mobility,Transfers,Balance ,Self care,Safety Rehab Potential Rehab Potential Good Equipment Needs Assistive Devices Rolling / Wheeled Walker Plan OT intervention Plan Bed Mobility,Transfers,Balance ,Self care,Safety,Therapeutic Exercise OT Plan Frequency BID Duration LOS Discharge Goals Bed Mobility Ability Standby Assistance Sit to Stand Chair Transfer Ability Supervision/Stand by Chair Transfer Ability Supervision/Stand by Chair Transfer Technique Sit to/from Ambulatory Chair Transfer Assistive Devices Rolling Walker Feeding Ability
--- NOTE | 2023-02-12 10:22 | HMH.PTEV ---
Physical Therapy Evaluation Rehab PT IP Evaluation Start: 02/11/23 20:13 Freq: ONCE Status: Active Protocol: Document 02/12/23 10:01 [facility] (Rec: 02/12/23 10:21 [facility] [id number]) Subjective/History History History Pt is a pleasant 82 year old man that presented to the ED on 02/11/2023 with reports of multiple falls at home. Pt was recently admitted for encephalopathy secondary to urinary tract infection, once improved pt was discharged home with caregiver and HHPT. Pts caregiver feels that he should be in a alf due to multiple falls at home. Subjective Subjective Pt presents in restroom with nursing staff upon PT arrival. Pt pleasant and agreeable to PT initial evaluation. Pt reports a little back pain at rest. Rehab PT IP Eval Objective Appearance Patient Behavior Appropriate,Fatigued Patient Orientation Person,Place,Birthday Difficulty following instructions mild Speech Pattern Clear,Appropriate Ambulation Patient Able to Ambulate Yes Ambulation Observation IP General Gait Pattern Observation Wide Based Gait Ambulation Distance (feet) 50 Ambulation Assistive Device Straight Cane Ambulation Ability Contact Guard/Hand Hold Balance Ability to Arise Able, uses arms to help Sitting Balance Leans or slides in chair Standing Balance Unsteady Dynamic Sitting Balance Ability Fair Dynamic Standing Balance Ability Fair Transfers Bed Transfer Ability Supervision/Stand by Chair Transfer Ability Contact Guard/Hand Hold Sit to Stand Bed Transfer Ability Contact Guard/Hand Hold Sit to Stand Chair Transfer Ability Contact Guard/Hand Hold Pain Back Pain Intensity 3 ROM RLE PT ROM Status WFL LLE PT ROM Status WFL MMT RLE PT MMT WFL LLE PT MMT WFL Rehab PT IP prob,goals,plan Problems Date of Evaluation: 02/12/23 PT IP Problems Gait,Balance,Self care,Safety Rehab Potential Rehab Potential Fair Equipment Needs Assistive Devices Straight Cane Plan PT Intervention Plan Bed Mobility,Transfers,Gait, Balance,Self care,Safety,
--- NOTE | 2023-02-12 10:31 | CARE MANAGER ---
Addendum entered by Gena Schwartz RN 02/12/23 13:38: Nurse called and stated caregiver saw patient walk and wants to take patient home. Contacted [facility] and they will be in touch with him regarding his home health that referred for last admission. Original Note: Spoke with Kelle, we are faxing updates to [facility] regarding this patient. PT states that patient will need SNF for balalnce issues.
--- NOTE | 2023-02-12 10:32 | CARE MANAGER ---
Current Medications Acetaminophen (Acetaminophen 325mg Tab) 650 mg PO Q6HP PRN PRN Reason: Fever or Mild Pain Stop: 03/14/23 04:07 Last Admin: 02/12/23 04:20 Dose: 650 mg Aspirin (Aspirin Ec 81mg Tablet) 81 mg PO DAILY SAUNDRA Stop: 03/14/23 08:59 Last Admin: 02/12/23 08:08 Dose: 81 mg Atorvastatin Calcium (Atorvastatin 20mg Tablet) 20 mg PO HS SAUNDRA Stop: 03/13/23 20:59 Last Admin: 02/11/23 20:53 Dose: 20 mg Buspirone HCl (Buspirone Hcl 10 Mg Tablet) 10 mg PO TID SAUNDRA Stop: 03/13/23 20:59 Last Admin: 02/12/23 08:08 Dose: 10 mg Clonazepam (Clonazepam 1mg Tablet) 1 mg PO DAILY SAUNDRA Stop: 03/13/23 20:29 Last Admin: 02/12/23 08:07 Dose: 1 mg Clopidogrel Bisulfate (Clopidogrel 75mg Tab) 75 mg PO DAILY SAUNDRA Stop: 03/14/23 08:59 Last Admin: 02/12/23 08:08 Dose: 75 mg Donepezil HCl (Donepezil 5mg Tab) 5 mg PO HS SAUNDRA Stop: 03/13/23 20:59 Last Admin: 02/11/23 20:54 Dose: 5 mg Levetiracetam (Levetiracetam 500 Mg Tablet) 500 mg PO DAILY SAUNDRA Stop: 03/14/23 10:44 Levetiracetam (Levetiracetam 500 Mg Tablet) 1,000 mg PO HS SAUNDRA Stop: 03/14/23 20:59 Levothyroxine Sodium (Levothyroxine 75mcg (0.075mg) Tab) 75 mcg PO DAILYDM SAUNDRA Stop: 03/14/23 08:59 Last Admin: 02/12/23 08:07 Dose: 75 mcg Magnesium Oxide (Magnesium Oxide 400mg Tablet) 400 mg PO DAILY SAUNDRA Stop: 03/14/23 08:59 Last Admin: 02/12/23 08:07 Dose: 400 mg Meclizine HCl (Meclizine 25mg Tablet) 25 mg PO TID SAUNDRA Stop: 03/13/23 20:59 Last Admin: 02/12/23 08:08 Dose: 25 mg Metformin HCl (Metformin 500mg Tablet) 500 mg PO BIDWMEAL SAUNDRA Stop: 03/14/23 07:29 Last Admin: 02/12/23 08:07 Dose: 500 mg Metoprolol Tartrate (Metoprolol Tartrate 25mg Tablet) 25 mg PO BID SAUNDRA Stop: 03/13/23 20:59 Last Admin: 02/12/23 08:08 Dose: 25 mg Mirtazapine (Mirtazapine 15 Mg Tablet) 30 mg PO HS SAUNDRA Stop: 03/14/23 20:59 Phenytoin Sodium (Phenytoin 100mg Capsule) 200 mg PO DAILY SAUNDRA Stop: 03/14/23 08:59 Last Admin: 02/12/23 08:07 Dose: 200 mg Ranolazine (Ranolazine 500mg Er Tablet) 1,000 mg PO BID SAUNDRA Stop: 03/14/23 08:59 Last Admin: 02/12/23 08:07 Dose: 1,000 mg Vitamin D (Cholecalciferol 1,000 Units (25mcg) Tablet) 25 mcg PO DAILY SAUNDRA Stop: 03/14/23 08:59 Last Admin: 02/12/23 08:07 Dose: 25 mcg
--- NOTE | 2023-02-12 11:58 | EXP.ACUTE.PN ---
Subjective *Date: 02/12/23 *Time: 11:58 Interval history: No issues, pleasantly confused Medical Exam Vital signs and Labs for Last 24 Hours: Vital Signs Temp Pulse Pulse Pulse Pulse Pulse Resp 02/12/23 08:00 98.7 F 81 20 02/12/23 04:28 98.2 F 77 18 02/12/23 01:45 02/12/23 00:00 98.2 F 78 18 02/11/23 20:13 77 87 88 02/11/23 20:00 97.7 F 87 18 02/11/23 18:10 97.6 F 83 16 02/11/23 18:00 98 F 82 18 02/11/23 17:31 97.6 F 83 16 02/11/23 16:37 98 F 82 18 BP BP BP BP BP Pulse Ox 02/12/23 08:00 163/70 H 93 L 02/12/23 04:28 148/62 H 92 L 02/12/23 01:45 86 L 02/12/23 00:00 156/66 H 83 L 02/11/23 20:13 148/62 H 156/88 H 154/73 H 02/11/23 20:00 152/72 H 92 L 02/11/23 18:10 177/74 H 93 L 02/11/23 18:00 160/72 H 02/11/23 17:31 177/74 H 93 L 02/11/23 16:37 160/72 H 96 Intake and Output 02/11/23 02/12/23 02/12/23 23:59 07:59 15:59 Intake Total 100 / 100 Output Total 150 / 150 0 / 150 150 / 150 Balance -150 / -50 100 / -50 -150 / -50 Intake: Intake, Oral Amount 100 / 100 Output: Output, Urine Amount 150 / 150 0 / 150 150 / 150 Other: Number of Unmeasured Voids 1 1 Weight 70.505 kg 69.989 kg Patient Weight 02/12/23 23:59 Weight 69.989 kg Laboratory Results - last 24 hr 02/11/23 16:20: SARS-CoV-2 (PCR) Not detected, Influenza A Untype (PCR) Not detected, Influenza Type B (PCR) Not detected 02/11/23 20:20: WBC 12.5 H, RBC 3.47 L, Hgb 9.3 L, Hct 30.9 L, MCV 89.0, MCH 26.9 L, MCHC 30.2 L, RDW 16.7, Plt Count 319, MPV 8.0, Neut % (Auto) 39.5, Lymph % (Auto) 52.5 H, [place] % (Auto) 4.8, Eos % (Auto) 3.2, Baso % (Auto) 5.1 H, Neut # (Auto) 4.9, Lymph # (Auto) 6.6 H, [place] # (Auto) 0.6, Eos # (Auto) 0.4, Baso # (Auto) 0.6 H, Total Counted 100, Neutrophils % (Manual) 35 L, Lymphocytes % (Manual) 58 H, Monocytes % (Manual) 1 L, Eosinophils % (Manual) 5 H, Blast Cells % 1.0, Platelet Estimate Normal, Hypochromasia 1+, Anisocytosis 1+ 02/11/23 20:20: Sodium 139, Potassium 4.1, Chloride 104, Carbon Dioxide 32 H, Anion Gap 7.1, BUN 20, Creatinine 1.50 H, Estimated Creat Clear 39, Estimated GFR 45 L, Est GFR ( Amer) 54 L, Glucose 107 H, Calcium 7.6 L, Total Bilirubin 0.3, AST 31, ALT 16, Alkaline Phosphatase 64, Total Protein 8.0, Albumin 3.0 L, Globulin 5.0 H, Albumin/Globulin Ratio 0.6 L I & O for Labs for Last 24 Hours: Intake & Output 02/09/23 02/10/23 02/11/23 02/12/23 23:59 23:59 23:59 23:59 Intake Total 100 / 100 Output Total 150 / 150 150 / 150 Balance -150 / -50 -50 / -50 Weight 70.505 kg 69.989 kg Microbiology Reports for the Last 24 Hours: Microbiology 02/05/23 10:56 Urine,Catheterized Urine Culture - Final Aerococcus species Constitutional: Present no acute distress and cooperative Head: Present atraumatic and normocephalic ENT: Present normal exam Respiratory: Present normal respiratory effort; Absent accessory muscle use, rhonchi, wheezes or crackles Cardiac: Present Reg Rate and Rhythm GI: Present normal bowel sounds; Absent tenderness Extremities: Present normal inspection and full ROM Comment:: Ecchymoses on left forearm Skin: Present intact; Absent erythema Neuro: Present Grossly Intact, alert, awake and moves all extremities Comment:: Oriented x 2 Assessment and Plan *Assessment and plan (1) Type 2 diabetes mellitus with hyperglycemia, without long-term current use of insulin: Status: Chronic Category: Medical Code(s): E11.65 - Type 2 diabetes mellitus with hyperglycemia (2) Depressive disorder: Status: Chronic Category: Medical Code(s): F32.9 - Major depressive disorder, single episode, unspecified (3) Encephalomalacia: Status: Chronic Category: Medical Code(s): G93.89 - Other specified disorders of brain (4) Diabetes me
--- NOTE | 2023-02-12 13:44 | EXP.DC.SUM ---
General Admission date:: 02/11/23 HPI HPI HPI: 82-year-old male presents status post falls.? Patient was recently admitted in the hospital for encephalopathy secondary to urinary tract infection.? I actually admitted him earlier this week and he was quite encephalopathic at that time he is significantly improved from that standpoint today and his history is not limited today.? He states that he has been home and has been falling very frequently.? He states its been too numerous to count.? He was discharged with PT OT and home health he states that he has been having home health coming by.? However his caregiver believes that he should be in a care home and he does not want to be in a care home and he wants to go home, she is not currently here to provide history.? He denies any injuries with his falls states that he has no head injury no neck pain no neck injury no chest abdomen pelvis or long bone pain.? He also has no urinary tract infection symptoms.? He states the main reason is here is just because he is have been having falls. Hospital Course Hospital Course Hospital Course: admitted for placement and falls. Unable to find placement. Medically stable. Caregiver willing to take patient home. Exam Data for Last 24 hours Vital signs and Labs for Last 24 Hours: Temp Pulse Resp BP Pulse Ox 98.7 F 81 20 163/70 H 93 L 02/12/23 08:00 02/12/23 08:00 02/12/23 08:00 02/12/23 08:00 02/12/23 08:00 Laboratory Results - last 24 hr 02/11/23 16:20: SARS-CoV-2 (PCR) Not detected, Influenza A Untype (PCR) Not detected, Influenza Type B (PCR) Not detected 02/11/23 20:20: WBC 12.5 H, RBC 3.47 L, Hgb 9.3 L, Hct 30.9 L, MCV 89.0, MCH 26.9 L, MCHC 30.2 L, RDW 16.7, Plt Count 319, MPV 8.0, Neut % (Auto) 39.5, Lymph % (Auto) 52.5 H, [place] % (Auto) 4.8, Eos % (Auto) 3.2, Baso % (Auto) 5.1 H, Neut # (Auto) 4.9, Lymph # (Auto) 6.6 H, [place] # (Auto) 0.6, Eos # (Auto) 0.4, Baso # (Auto) 0.6 H, Total Counted 100, Neutrophils % (Manual) 35 L, Lymphocytes % (Manual) 58 H, Monocytes % (Manual) 1 L, Eosinophils % (Manual) 5 H, Blast Cells % 1.0, Platelet Estimate Normal, Hypochromasia 1+, Anisocytosis 1+ 02/11/23 20:20: Sodium 139, Potassium 4.1, Chloride 104, Carbon Dioxide 32 H, Anion Gap 7.1, BUN 20, Creatinine 1.50 H, Estimated Creat Clear 39, Estimated GFR 45 L, Est GFR ( Amer) 54 L, Glucose 107 H, Calcium 7.6 L, Total Bilirubin 0.3, AST 31, ALT 16, Alkaline Phosphatase 64, Total Protein 8.0, Albumin 3.0 L, Globulin 5.0 H, Albumin/Globulin Ratio 0.6 L I & O for Last 24 hours: Intake & Output 02/09/23 02/10/23 02/11/23 02/12/23 23:59 23:59 23:59 23:59 Intake Total 220 / 220 Output Total 150 / 150 250 / 250 Balance -150 / -50 -30 / -30 Weight 70.505 kg 69.989 kg Constitutional Constitutional: no acute distress *Routine HEENT Exam Head: Present normocephalic Eye: Present EOMI and PERRL ENT: Present mucous membranes moist *Routine Neck Exam Neck: Present supple; Absent lymphadenopathy *Routine Respiratory Exam Respiratory: Present CTA bilaterally *Routine Cardiovascular Exam Cardiovascular: Present RRR *Routine Abdominal Exam Abdominal: Present soft and normoactive bowel sounds; Absent tenderness *Routine Extremities Exam Extremities: Absent cyanosis, clubbing or edema *Routine Skin Exam Skin: Present warm; Absent rash *Routine Neurological Exam Neurological: Present alert and oriented X3 Results Data Completed and Pending Labs on day of discharge: Labs from last 24 hours 02/11/23 02/11/23 02/11/23 20:20 20:20 16:20 WBC 12.5 H RBC 3.47 L Hgb 9.3 L Hct 30.9 L MCV 89.0 MCH 26.9 L MCHC 30.2 L RDW 16.7 Plt Count 319 MPV 8.0 Neut % (Auto) 39.5 Lymph % (Auto) 52.5 H [place] % (Auto) 4.8 Eos % (Auto) 3.2 Baso % (Auto) 5.1 H Neut # (Auto) 4.9 Lymph # (Auto) 6.6 H [place] # (Auto) 0.6 Eos # (Auto) 0.4 Baso # (Auto) 0.6 H Total Counted 100 Neut
--- NOTE | 2023-02-12 14:26 | PC.NURSE ---
tech note; pt walked length of hallway once using walker with physical therapy Alise Batista, SRNA
--- NOTE | 2023-02-15 14:53 | CARE MANAGER ---
Spoke with Kelle (caregiver) for post-discharge phone interview, no issues noted.
== END 2023-02-12 15:05 | disposition home health service (06) ==
LOC: ER 16:16 → 2ND 16:47
PROVIDERS: Nurse Practitioner Family; Admitting Provider Student in an Organized Health Care Education/Training Program; Emergency Provider Student in an Organized Health Care Education/Training Program; PCP Internal Medicine Adolescent Medicine; Visit Provider Student in an Organized Health Care Education/Training Program
DX: E11.65 Type 2 diabetes mellitus with hyperglycemia (principal); F32.9 Major depressive disorder, single episode, unspecified; F17.210 Nicotine dependence, cigarettes, uncomplicated; Z79.02 Long term (current) use of antithrombotics/antiplatelets; Z79.84 Long term (current) use of oral hypoglycemic drugs; G40.909 Epilepsy, unspecified, not intractable, without status epilepticus; Z79.899 Other long term (current) drug therapy; R29.6 Repeated falls; I10 Essential (primary) hypertension; N39.0 Urinary tract infection, site not specified; Z20.822 Contact with and (suspected) exposure to COVID-19
CPT/HCPCS: G0378; 36415; 80053; 85007; 85025; 97116; 97162; 97166; 97530; 99285; C9803; U0003; U0005